=== PATIENT | male | born 1990 | race Caucasian/White ===

== ENCOUNTER 2017-02-28 19:14 | Inpatient (IN) | payer SELFPAY ==
[~2017-02-28] VITALS: Ht 188 cm; Wt 65.1 kg
[2017-02-28 19:20] VITALS: BP 142/92; PULSE 132; RESP 18; TEMP 97.8; O2SAT 98
[2017-02-28] MEDS ORDERED: SODIUM CHLOR 0.9% 1000 ML INJ 1,000 ML IV ONE ×2 (19:30→21:15)
[2017-02-28] MEDS ORDERED: THIAMINE INJ 100 MG in SODIUM CHLORIDE 0.9% INJ 100 ML IV ONE (19:30)
--- NOTE | 2017-02-28 19:33 | PD ---
HPI Chief Complaint: Seizure Time Seen by Provider: 19:20 Travel History International Travel<30 days: No Contact w/Intl Traveler<30days: No Traveled to known affect area: No History of Present Illness HPI The patient is a 26 year old male who presents to the [facility] emergency department with a history of reportedly being found on the floor with a decreased level of consciousness by his roommates. According to ambulance services, the patient was in the kitchen and they heard a loud crash. When they went to check on him he was on the floor. He did not have any shaking or noted seizure activity, however according to ambulance services see does have a history of seizures in the past. The patient was confused with a decreased level of consciousness. The patient arrives tachycardic in the 120s with dilated pupils. The patient is looking around the room but not focusing on any particular person. The patient has difficulty speaking although he is able to answer yes or no to questions. He denies having any pain. According to ambulance services, there were multiple bottles of empty liquor throughout the house. Also, from reviewing the patient's electronic medical record the patient has a history of alcohol and drug overdose previously evaluated in the hospital. According to the record, this was an unintentional overdose. The patient's history is limited related to his current condition, his history is obtained through reviewing the electronic medical record. PFSH Past Medical History Narrative Medical The patient's past medical history is significant for alcohol abuse, polysubstance abuse, history of anxiety disorder and panic attacks, history of seizures. Hx Anticoagulant Therapy: No Blood Disorders: No Anxiety: Yes Cancer: No Cardiovascular Problems: Yes (Tachy) Chemotherapy: No Cerebrovascular Accident: No Diabetes: No Diminished Hearing: No Endocrine: No Immune Disorder: No Implanted Vascular Access Dvce: No Musculoskeletal: Yes (BROKEN JAW) Psychiatric: Yes (PANIC ATTACKS) Immunizations Current: Yes Seizures: Yes (APPROX 5 TIMES IN 2009. ) Past Surgical History Narrative Surgical The patient's past surgical history is significant for ORIF of the jaw. Hysterectomy: No Other Surgery: Yes (broken jaw) Social History Alcohol Use: Yes ((4) 16 OZ BEERS DAILY/ 750 ML VODKA DLY) Tobacco Use: Yes (E-CIG) Substance Use: Yes (MARIJUANA; HEROIN, XANAX) Allergies-Medications (Allergen,Severity, Reaction): Coded Allergies: Sulfa (Verified Allergy, Unknown, TOLD CHILD, 10/16/16) Reported Meds & Prescriptions Reported Meds & Active Scripts Active No Active Prescriptions or Reported Medications Review of Systems ROS Limitations: Clinical Condition, Poor Historian Except as stated in HPI: all other systems reviewed are Neg Musculoskeletal: No: Pain Neurologic: Positive: Change in Mentation Psychiatric: Positive: Substance Abuse Physical Exam Narrative General: The patient is a well-developed well-nourished male in no acute distress. Head and Neck exam: Head is normocephalic atraumatic. Eyes: Extra the motion testing is unable to be accomplished in this patient who is unable to follow commands at this time, pupils are equal round and reactive to light, dilated to 6 mm bilaterally. Nose: Midline septum with pink mucous membranes Mouth: Dentition unremarkable. Tacky mucus membranes. Posterior oropharynx is not erythematous. No tonsillar hypertrophy. Uvula midline. Airway patent. Neck: No palpable lymphadenopathy. No nuchal rigidity. No thyromegaly. The patient was placed in a cervical collar. The patient has altered mentation, therefore his neck examination was limited by this. There is no step-off or crepitus noted. Cardiovascular: Sinus tachycardia with a rate in the 120s without murmurs, gallops, or rubs. No pulse deficit to the extremities and simultaneous auscultation and palpation of his radial artery. Lungs: Clear to auscultation bilaterally. No wheezes, rhonchi, or rales. Abdomen: Soft, without tenderness to palpation in all 4 quadrants of the abdomen. No guarding, rebound, or rigidity. Normal bowel sounds are audible. Extremities: No clubbing, cyanosis, or edema. 2+ pulses in all 4 extremities. No calf tenderness on palpation. No extremity deformity or tenderness on palpation. Back: No spinous process tenderness to palpation. No costovertebral angle tenderness to palpation. The patient is noted to have an area of ecchymosis Neurologic Exam: The patient has not following commands although he is moving all extremities equally. He has no evidence of facial asymmetry. He has 5 over 5 strength in all extremities. He has intact sensation over all dermatomes. The patient is tremulous on examination. Data Data Last Documented VS Vital Signs Date Time Temp Pulse Resp B/P Pulse Ox O2 Delivery O2 Flow Rate FiO2 02/28/17 19:47 18 98 02/28/17 19:23 130 02/28/17 19:20 97.8 142/92 Orders Complete Blood Count With Diff (02/28/17 19:26) Comprehensive Metabolic Panel (02/28/17 19:26) Creatine Kinase (Cpk) (02/28/17 19:26) Ckmb (Isoenzyme) Profile (02/28/17 19:26) Prothrombin Time / Inr (Pt) (02/28/17 19:) Act Partial Throm Time (Ptt) (02/28/17 19:) Urinalysis - C+S If Indicated (02/28/17 19:26) Magnesium (Mg) (02/28/17 19:) Ammonia (02/28/17:) Chest, Single Ap (02/28/17 19:26) Ct Brain W/O Iv Contrast(Rout) (02/28/17 19:26) Iv Access Insert/Monitor (02/28/17 19:26) Ecg Monitoring (02/28/17:) Oximetry (02/28/17:) Apply Cervical Collar (02/28/17 19:) Drug Screen, Random Urine (02/28/17 19:26) Alcohol (Ethanol) (02/28/17 19:26) Salicylates (Aspirin) (02/28/17 19:26) Tylenol (Acetaminophen) (02/28/17 19:26) Sodium Chlor 0.9% 1000 Ml Inj (Ns 1000 M (02/28/17 19:30) Thiamine Inj (Thiamine Inj) (02/28/17 19:30) Ct Cerv Spine W/O Contrast (02/28/17 ) Lorazepam Inj (Ativan Inj) (02/28/17 20:15) Restraints Non-Violent PHONG.Q3H (02/28/17 20:10) Electrocardiogram (02/28/17 19:22) Sodium Chlor 0.9% 1000 Ml Inj (Ns 1000 M (02/28/17 21:15) Alcohol Withdrawal Asmt-Ciwa Q4HX18 (02/28/17 22:07) Flumazenil Inj (Romazicon Inj) (02/28/17 22:15) Lorazepam (Ativan) (02/28/17 22:15) Lorazepam Inj (Ativan Inj) (02/28/17 22:15) Lorazepam (Ativan) (02/28/17 22:15) Lorazepam Inj (Ativan Inj) (02/28/17 22:15) Lorazepam Inj (Ativan Inj) (02/28/17 22:15) Lorazepam Inj (Ativan Inj) (02/28/17 22:15) CKMB (02/28/17 19:40) CKMB% (02/28/17 19:40) Admit Order (Ed Use Only) (02/28/17 22:40) Labs Laboratory Tests Test 02/28/17 02/28/17 19:40 21:00 White Blood Count 3.6 TH/MM3 Red Blood Count 4.97 MIL/MM3 Hemoglobin 15.8 GM/DL Hematocrit 46.4 % Mean Corpuscular Volume 93.5 FL Mean Corpuscular Hemoglobin 31.9 PG Mean Corpuscular Hemoglobin 34.1 % Concent Red Cell Distribution Width 12.9 % Platelet Count 64 TH/MM3 Mean Platelet Volume 8.0 FL Neutrophils (%) (Auto) 55.5 % Lymphocytes (%) (Auto) 35.0 % Monocytes (%) (Auto) 6.5 % Eosinophils (%) (Auto) 1.1 % Basophils (%) (Auto) 1.9 % Neutrophils # (Auto) 2.0 TH/MM3 Lymphocytes # (Auto) 1.3 TH/MM3 Monocytes # (Auto) 0.2 TH/MM3 Eosinophils # (Auto) 0.0 TH/MM3 Basophils # (Auto) 0.1 TH/MM3 CBC Comment AUTO DIFF Differential Comment AUTO DIFF CONFIRMED Platelet Estimate LOW Platelet Morphology Comment NORMAL Red Cell Morphology Comment NORMAL Prothrombin Time 10.2 SEC Prothromb Time International 0.9 RATIO Ratio Activated Partial 25.8 SEC Thromboplast Time Sodium Level 142 MEQ/L Potassium Level 4.1 MEQ/L Chloride Level 102 MEQ/L Carbon Dioxide Level 23.8 MEQ/L Anion Gap 16 MEQ/L Blood Urea Nitrogen 11 MG/DL Creatinine 0.95 MG/DL Estimat Glomerular Filtration 95 ML/MIN Rate Random Glucose 116 MG/DL Calcium Level 8.2 MG/DL Magnesium Level 2.4 MG/DL Total Bilirubin 0.6 MG/DL Aspartate Amino Transf 206 U/L (AST/SGOT) Alanine Aminotransferase 66 U/L (ALT/SGPT) Alkaline Phosphatase 97 U/L Ammonia 44 MCMOL/L Total Creatine Kinase 330 U/L Creatine Kinase MB 1.1 NG/ML Creatine Kinase MB % 0.3 % Total Protein 8.0 GM/DL Albumin 4.6 GM/DL Salicylates Level LESS THAN 1.7 MG/DL Acetaminophen Level LESS THAN 2.0 MCG/ML Ethyl Alcohol Level 524 MG/DL Urine Opiates Screen NEG Urine Barbiturates Screen NEG Urine Amphetamines Screen NEG Urine Benzodiazepines Screen NEG Urine Cocaine Screen NEG Urine Cannabinoids Screen NEG MDM Medical Decision Making Medical Screen Exam Complete: Yes Emergency Medical Condition: Yes Medical Record Reviewed: Yes Interpretation(s) Last Impressions Head CT 02/28/171925 Signed Impressions: Service Date/Time: Tuesday, February 28, 2017 20:48 - CONCLUSION: Normal examination. José Veloz MD Chest X-Ray 02/28/171925 Signed Impressions: Service Date/Time: Tuesday, February 28, 2017 19:45 - CONCLUSION: No acute disease. José Veloz MD Cervical Spine CT 02/28/17 0000 Signed Impressions: Service Date/Time: Tuesday, February 28, 2017 20:48 - CONCLUSION: No fracture/subluxation. José Veloz MD Differential Diagnosis Alcohol intoxication, versus other substance intoxication, versus withdrawal syndrome with seizure, versus postictal state, versus intracranial abnormality, versus metabolic encephalopathy Narrative Course During the course of the patients emergency department visit, the patients history, examination, and differential diagnosis were reviewed with the patient. The patient had IV access obtained and blood work sent for analysis. The patient was placed on a road consultant with oximetry and blood pressure monitoring. A cervical collar was placed on the patient. A condom catheter was placed on the patient to obtain a urine sample. A chest x-ray, CT scan of the brain was ordered, CT scan of the C-spine was ordered. The patient's blood sugar prior to arrival was reportedly normal according to ambulance services. An EKG was done on arrival. The patient's EKG shows a sinus tachycardia rate of 123, marked right axis deviation, incomplete right bundle branch block, QRS duration 90 ms, QTC [address] segment elevation. The patient was initially provided normal saline 1 L IV fluid bolus, thiamine 100 mg IV. The patient became agitated and was having difficulty staying still in bed. The patient was given Ativan 2 mg IV 1. As the patient became more awake and alert, the patient reports that he was attempting to stop drinking alcohol. He reports that he has had seizures in the past when he has stopped drinking. He reports that over the last 24 hours she's been tremulous. He reports that he was previously drinking 8-16 ounce beers daily. He reports that he last went through a detox program 2 weeks ago. The patient's symptoms are suspected to be related to alcohol withdrawal syndrome and delirium tremens. The patient was given additional Ativan for treatment as he continues to be agitated and tremulous. Interestingly the patient's alcohol level finally was resulted at 524. The patient has a history of Xanax abuse in the past, I suspect that the patient's withdrawal syndrome is related to benzodiazepine withdrawal. The patients laboratory studies were reviewed and remarkable for white count is 3.6, hemoglobin 15.8, platelets 64 with a normal differential, CMP is remarkable for an anion gap of 16, glucose 116, calcium 8.2, AST 206, CPK 3:30, normal MB percent, ammonia level XLIV, PT PTT within normal limits, urine drug screen is negative, salicylate less than 1.7, acetaminophen less than 2.0, alcohol level DXXIV. Radiology studies were reviewed and remarkable for a chest x-ray, CT scan of the brain, CT scan of the C-spine showed no acute abnormality. The patient will be admitted to the hospital for seizure activity and what appears to be benzodiazepine withdrawal syndrome, self medicated with alcohol. The patients results were discussed with the patient, including the plan of care. I explained that further testing and/ or monitoring is indicated based on the patients history, examination, and/ or laboratory findings. Therefore, I recommended admission for additional evaluation. The patient expressed understanding and was agreeable with this plan. The patient was admitted to the hospital in guarded condition and [facility] Physician Communication Physician Communication The patient's case was discussed with Dr. Wang who did agree to admit the patient for further evaluation and treatment at this time. Diagnosis Primary Impression: Withdrawal syndrome Qualified Code: F13.239 - Withdrawal from sedative, hypnotic, or anxiolytic drug Additional Impression: Seizure Admitting Information Admitting Physician Requests: Admit Scripts No Active Prescriptions or Reported Meds Carito Zhang MD Feb 28, 2017 19:33
[2017-02-28 19:47] VITALS: RESP 18; O2SAT 98
--- NOTE | 2017-02-28 19:57 | RADRPT ---
EXAM DATE/TIME: 02/28/2017 19:45 [facility] COMPARISON: CHEST SINGLE AP, October 16, 2016, 17:22. INDICATIONS : Syncopal episode. MEDICAL HISTORY : Seizures. SURGICAL HISTORY : None. ENCOUNTER: Initial ACUITY: 1 day PAIN SCORE: Non-responsive. LOCATION: Bilateral chest FINDINGS: A single view of the chest demonstrates the lungs to be symmetrically aerated without evidence of mas s, infiltrate or effusion. The cardiomediastinal contours are unremarkable. Osseous structures are intact. CONCLUSION: No acute disease. José Veloz MD on February 28, 2017 at 19:54 Board Certified Radiologist. This report was verified electronically.
[2017-02-28 20:11] LABS: BASOPHIL # 0.1 TH/MM3 (0-0.2); BASOPHIL % 1.9 % (0.0-2.0); EOSINOPHIL % 1.1 % (0.0-4.0); HEMATOCRIT 46.4 % (39.0-51.0); LYMPHOCYTE # 1.3 TH/MM3 (1.0-4.8); MEAN CELL VOLUME 93.5 FL (80.0-100.0); MEAN CORPUSCULAR HEMOGLOBIN 31.9 PG (27.0-34.0); MEAN CORPUSCULAR HGB CONC 34.1 % (32.0-36.0); MONO % 6.5 % (0.0-8.0); NEUT % 55.5 % (16.0-70.0); PLATELET COUNT 64 TH/MM3 (150-450); RED BLOOD COUNT 4.97 MIL/MM3 (4.50-5.90); RED CELL DISTRIBUTION WIDTH 12.9 % (11.6-17.2); WHITE BLOOD COUNT 3.6 TH/MM3 (4.0-11.0)
[2017-02-28] MEDS ORDERED: LORazepam 2 MG/ML VIAL IV PUSH ONE (20:15)
[2017-02-28 20:16] LABS: APTT (PATIENT) 25.8 SEC (24.3-30.1); INTERNATIONAL NORMALIZED RATIO 0.9 RATIO; PROTHROMBIN TIME - PATIENT 10.2 SEC (9.8-11.6)
[2017-02-28 20:39] LABS: HEMO FLAGS AUTO DIFF
[2017-02-28 20:55] LABS: PLATELET ESTIMATE SMEAR LOW (NORMAL); PLATELET MORPHOLOGY NORMAL (NORMAL); SCAN/DIFF AUTO DIFF CONFIRMED
--- NOTE | 2017-02-28 21:05 | RADRPT ---
EXAM DATE/TIME: 02/28/2017 20:48 [facility] COMPARISON: CT BRAIN W/O CONTRAST, October 16, 2016, 17:30. INDICATIONS : Seizures. RADIATION DOSE: 40.38 CTDIvol (mGy) MEDICAL HISTORY : Cardiovascular disease. Seizures. SURGICAL HISTORY : None. ENCOUNTER: Initial ACUITY: 1 day PAIN SCALE: 0/10 LOCATION: cranial TECHNIQUE: Multiple contiguous axial images were obtained of the head. Using automated exposure control and adj ustment of the mA and/or kV according to patient size, radiation dose was kept as low as reasonably a chievable to obtain optimal diagnostic quality images. FINDINGS: CEREBRUM: The ventricles are normal for age. No evidence of midline shift, mass lesion, hemorrhage or acute in farction. No extra-axial fluid collections are seen. POSTERIOR FOSSA: The cerebellum and brainstem are intact. The 4th ventricle is midline. The cerebellopontine angle i s unremarkable. EXTRACRANIAL: The visualized portion of the orbits is intact. SKULL: The calvaria is intact. No evidence of skull fracture. CONCLUSION: Normal examination. José Veloz MD on February 28, 2017 at 21:00 Board Certified Radiologist. This report was verified electronically.
--- NOTE | 2017-02-28 21:07 | RADRPT ---
EXAM DATE/TIME: 02/28/2017 20:48 [facility] COMPARISON: No previous studies available for comparison. INDICATIONS : Seizures. RADIATION DOSE: 20.67 CTDIvol (mGy) MEDICAL HISTORY : Cardiovascular disease. Seizures. SURGICAL HISTORY : None. ENCOUNTER: Initial ACUITY: 1 day PAIN SCALE: 0/10 LOCATION: neck TECHNIQUE: Volumetric scanning of the cervical spine was performed. Multiplanar reconstructions in the sagittal, coronal and oblique axial planes were performed. Using automated exposure control and adjustment o f the mA and/or kV according to patient size, radiation dose was kept as low as reasonably achievable to obtain optimal diagnostic quality images. FINDINGS: VERTEBRAE: Normal vertebral body height. ALIGNMENT: No evidence of subluxation. C2-C3: The bony spinal canal is normal in size. No evidence of disc bulge or herniation. The neural forami na are bilaterally patent. C3-C4: The bony spinal canal is normal in size. No evidence of disc bulge or herniation. The neural forami na are bilaterally patent. C4-C5: The bony spinal canal is normal in size. No evidence of disc bulge or herniation. The neural forami na are bilaterally patent. C5-C6: The bony spinal canal is normal in size. No evidence of disc bulge or herniation. The neural forami na are bilaterally patent. C6-C7: The bony spinal canal is normal in size. No evidence of disc bulge or herniation. The neural forami na are bilaterally patent. C7-T1: The bony spinal canal is normal in size. No evidence of disc bulge or herniation. The neural forami na are bilaterally patent. CONCLUSION: No fracture/subluxation. José Veloz MD on February 28, 2017 at 21:04 Board Certified Radiologist. This report was verified electronically.
[2017-02-28 21:24] LABS: AMPHETAMINE, URINE NEG (NEG); BARBITURATES, URINE NEG (NEG); COCAINE, URINE NEG (NEG)
[2017-02-28 22:06] LABS: ANION GAP 16 MEQ/L (5-15)
[2017-02-28 22:12] LABS: ACETAMINOPHEN LESS THAN 2.0 MCG/ML (10.0-30.0); ALKALINE PHOSPHATASE 97 U/L (45-117); ALT (GPT) 66 U/L (12-78); AST (GOT) 206 U/L (15-37); BICARBONATE 23.8 MEQ/L (21.0-32.0); BLOOD UREA NITROGEN 11 MG/DL (7-18); CHLORIDE 102 MEQ/L (98-107); CREATINE KINASE 330 U/L (39-308); GLOMERULAR FILTRATION RATE 95 ML/MIN (>89); MAGNESIUM 2.4 MG/DL (1.5-2.5); POTASSIUM 4.1 MEQ/L (3.5-5.1); SODIUM (NA) 142 MEQ/L (136-145); TOTAL BILIRUBIN ADULT 0.6 MG/DL (0.2-1.0)
[2017-02-28] MEDS ORDERED: LORazepam 2 MG/ML VIAL IV PUSH PRN ×4 (22:15)
[2017-02-28] MEDS ORDERED: LORazepam 2 MG TAB PO PRN (22:15)
[2017-02-28] MEDS ORDERED: LORazepam 1 MG TAB PO PRN (22:15)
[2017-02-28] MEDS ORDERED: FLUMAZENIL 0.5 MG/5 ML VIAL IV PUSH PRN (22:15)
[2017-02-28 22:31] LABS: CKMB 1.1 NG/ML (0.5-3.6)
[2017-02-28 23:00] VITALS: BP 133/86; PULSE 111; RESP 18; O2SAT 99
[2017-02-28] MEDS ORDERED: SODIUM CHLORIDE 0.9% FLUSH 10 ML FLUSH IV FLUSH PRN (23:15)
[2017-02-28] MEDS ORDERED: NALOXONE HCL 0.4 MG/ML AMP IV PRN (23:15)
[2017-03-01] VITALS (10 sets, daily range): BP systolic 122–153; BP diastolic 76–94; PULSE 81–112; RESP 16–26; TEMP 97.8–98.4; O2SAT 95–100
--- NOTE | 2017-03-01 02:59 | HHI.HP ---
HPI Service [facility] Primary Care Physician No Primary Care Physician Admission Diagnosis Withdrawal syndrome, Etoh intoxication, AMS Diagnoses: Travel History International Travel<30 Days: No Contact w/Intl Traveler <30 Da: No Traveled to Known Affected Are: No History of Present Illness History from patient, ER physician communication, and review of medical records. Patient reports that he came to the hospital because he had a seizure. He reports his roommates where around. However he does not remember any of the events. He reports he just woke up at the ambulance. As per ER communication, patient was with his roommates and they heard a loud bump and one they want to check, they found him on the floor. Patient was quite confused and belligerent upon his initial arrival from triage all the way through the echo part. He required restraints. Patient reports of prior history of seizures. He states however that he is not on any medications for it. It usually happens when he is withdrawing from alcohol or benzos. He admits to using benzodiazepines on the streets. However he hasn't used it for about 2 days. He also admits to drinking alcohol. His alcohol level was greater than 500. Patient reports of some nausea and vomiting as well. However denies any blood. Later on, he requested his primary care to come and see him here. Again he is advised that his PCP does not come to the hospital had seizure remember waking up afternoon nap no diarrhea next line Patient reports that he has been cutting down on Xanax. He states he is instead using alcohol quite heavily and his last drink was today. Review of Systems Except as stated in HPI: all other systems reviewed are Neg Past Family Social History Past Medical History seizures - years ago Past Surgical History none Reported Medications None apart from Xanax on the streets Allergies: Coded Allergies: Sulfa (Verified Allergy, Unknown, TOLD CHILD, 10/16/16) Family History dad- had massive mi at 50s aunt- cancer Social History half a pack a day 8 beers a day sometimes shots benzos no iv drugs Physical Exam Vital Signs Vital Signs Date Time Temp Pulse Resp B/P Pulse Ox O2 Delivery O2 Flow Rate FiO2 03/01/17 01:00 109 18 126/79 99 02/28/17 23:00 111 18 133/86 99 02/28/17 19:47 18 98 02/28/17 19:23 130 18 98 02/28/17 19:20 97.8 132 18 142/92 98 Physical Exam GENERAL: This is a thin young gentleman, quite tremulous, tachycardic around 110 , not in distress. SKIN: Poor personal hygiene. HEAD: Atraumatic. Normocephalic. No temporal or scalp tenderness. EYES: No scleral icterus. No injection or drainage. ENT: Nose without bleeding, purulent drainage or septal hematoma. Airway patent. NECK: Trachea midline. No JVD CARDIOVASCULAR: Tachycardic, regular rhythm without murmurs, gallops, or rubs. RESPIRATORY: Clear to auscultation. Breath sounds equal bilaterally. No wheezes , rales, or rhonchi. GASTROINTESTINAL: Abdomen soft, non-tender, nondistended. No guarding. MUSCULOSKELETAL: Extremities without clubbing, cyanosis, or edema. No calf tenderness. NEUROLOGICAL: Awake and alert. Normal speech. Laboratory Laboratory Tests Test 02/28/17 02/28/17 19:40 21:00 White Blood Count 3.6 Red Blood Count 4.97 Hemoglobin 15.8 Hematocrit 46.4 Mean Corpuscular Volume 93.5 Mean Corpuscular Hemoglobin 31.9 Mean Corpuscular Hemoglobin 34.1 Concent Red Cell Distribution Width 12.9 Platelet Count 64 Mean Platelet Volume 8.0 Neutrophils (%) (Auto) 55.5 Lymphocytes (%) (Auto) 35.0 Monocytes (%) (Auto) 6.5 Eosinophils (%) (Auto) 1.1 Basophils (%) (Auto) 1.9 Neutrophils # (Auto) 2.0 Lymphocytes # (Auto) 1.3 Monocytes # (Auto) 0.2 Eosinophils # (Auto) 0.0 Basophils # (Auto) 0.1 CBC Comment AUTO DIFF Differential Comment AUTO DIFF CONFIRMED Platelet Estimate LOW Platelet Morphology Comment NORMAL Red Cell Morphology Comment NORMAL Prothrombin Time 10.2 Prothromb Time International 0.9 Ratio Activated Partial 25.8 Thromboplast Time Sodium Level 142 Potassium Level 4.1 Chloride Level 102 Carbon Dioxide Level 23.8 Anion Gap 16 Blood Urea Nitrogen 11 Creatinine 0.95 Estimat Glomerular Filtration 95 Rate Random Glucose 116 Calcium Level 8.2 Magnesium Level 2.4 Total Bilirubin 0.6 Aspartate Amino Transf 206 (AST/SGOT) Alanine Aminotransferase 66 (ALT/SGPT) Alkaline Phosphatase 97 Ammonia 44 Total Creatine Kinase 330 Creatine Kinase MB 1.1 Creatine Kinase MB % 0.3 Total Protein 8.0 Albumin 4.6 Salicylates Level LESS THAN 1.7 Acetaminophen Level LESS THAN 2.0 Ethyl Alcohol Level 524 Urine Opiates Screen NEG Urine Barbiturates Screen NEG Urine Amphetamines Screen NEG Urine Benzodiazepines Screen NEG Urine Cocaine Screen NEG Urine Cannabinoids Screen NEG Result Diagram: 02/28/17193902/28/171939 Imaging Last [address] 02/28/171925 Signed Impressions: Service Date/Time: Tuesday, February 28, 2017 20:48 - CONCLUSION: Normal examination. José Veloz MD Chest X-Ray 02/28/171925 Signed Impressions: Service Date/Time: Tuesday, February 28, 2017 19:45 - CONCLUSION: No acute disease. José Veloz MD Cervical Spine CT 02/28/17 0000 Signed Impressions: Service Date/Time: Tuesday, February 28, 2017 20:48 - CONCLUSION: No fracture/subluxation. José Veloz MD Assessment and Plan Problem List: (1) Seizure ICD Code: R56.9 Status: Acute (2) Withdrawal syndrome ICD Code: F19.939 Status: Acute Assessment and Plan Impression: Benzo withdrawal Alcohol intoxication Tachycardia RBBBchronic. Previous EKGs from 2009 reviewed. Seizuresecondary to withdrawal Plan: Ativan 1 mg IV every 2 hours when necessary for withdrawal symptoms. Seizure precautions. Thiamine 100 mg by mouth daily. IV hydration. Admit patient to ICU for close monitoring. Discussed Condition With Patient, ER physician, patient's nurse Physician Certification 2 Midnight Certification Type: Admission for Inpatient Services Order for Inpatient Services The services are ordered in accordance with Medicare regulations or non- Medicare payer requirements, as applicable. In the case of services not specified as inpatient-only, they are appropriately provided as inpatient services in accordance with the 2-midnight benchmark. Estimated LOS (days): 2 days is the estimated time the patient will need to remain in the hospital, assuming treatment plan goals are met and no additional complications. Post-Hospital Plan: Home Problem Qualifiers (1) Withdrawal syndrome: Qualified Code: F13.239 - Withdrawal from sedative, hypnotic, or anxiolytic drug Todd Wang MD Mar 01, 2017 02:59
[2017-03-01] MEDS ORDERED: THIAMINE INJ 100 MG in SODIUM CHLORIDE 0.9% INJ 100 ML IV ONE (03:15)
[2017-03-01] MEDS ORDERED: LORazepam 2 MG/ML VIAL IV PUSH PRN (03:45)
[2017-03-01] MEDS: SODIUM CHLOR 0.9% 1000 ML INJ 1,000 ML IV SCH ×3 (03:48→20:07)
[2017-03-01] MEDS: THIAMINE HCL 100 MG TAB PO SCH (07:16)
[2017-03-01] MEDS: SODIUM CHLORIDE 0.9% FLUSH 10 ML FLUSH IV FLUSH SCH ×2 (07:17→20:06)
[2017-03-01] MEDS: NICOTINE 14 MG/24 HR PATCH T-DERMAL SCH ×2 (07:17→07:20)
[2017-03-01] MEDS: MULTIVITAMINS/MINERALS THERAPEUTIC TAB PO SCH (09:00)
[2017-03-01] MEDS: LORazepam 2 MG/ML VIAL IV PUSH PRN ×9 (09:21→23:30)
[2017-03-01] MEDS ORDERED: CHLORHEXIDINE GLUCONATE 2 % 1 PACK (2 CLOTHS)(extra cloths) TOPICAL PRN (10:30)
--- NOTE | 2017-03-01 11:06 | EKG ---
Date Performed: 02/28/2017 Time Performed: 19:22:20 PTAGE: 26 years EKG: SINUS TACHYCARDIA MARKED RIGHT AXIS DEVIATION INCOMPLETE RIGHT BUNDLE BRANCH BLOCK ABNORMAL ECG PREVIOUS TRACING : 10/16/2016 17.40 Compared to prior tracing no significant change DOCTOR: Anne Gill Interpretating Date/Time 03/01/2017 11:05:00
[2017-03-01 12:11] LABS: AUTOMATED NEUTROPHIL # 2.9 TH/MM3 (1.8-7.7); BASOPHIL % 1.1 % (0.0-2.0); HEMATOCRIT 36.4 % (39.0-51.0); LYMPH % 21.3 % (9.0-44.0); LYMPHOCYTE # 0.9 TH/MM3 (1.0-4.8); MEAN CELL VOLUME 92.4 FL (80.0-100.0); MEAN CORPUSCULAR HEMOGLOBIN 32.6 PG (27.0-34.0); MEAN CORPUSCULAR HGB CONC 35.3 % (32.0-36.0); MONO % 7.1 % (0.0-8.0); NEUT % 69.5 % (16.0-70.0); PLATELET COUNT 42 TH/MM3 (150-450); RED BLOOD COUNT 3.94 MIL/MM3 (4.50-5.90); RED CELL DISTRIBUTION WIDTH 12.7 % (11.6-17.2); WHITE BLOOD COUNT 4.1 TH/MM3 (4.0-11.0)
[2017-03-01 12:20] LABS: HEMO FLAGS AUTO DIFF
[2017-03-01 12:38] LABS: BICARBONATE 25.1 MEQ/L (21.0-32.0); POTASSIUM 3.6 MEQ/L (3.5-5.1)
[2017-03-01 13:04] LABS: PLATELET ESTIMATE SMEAR LOW (NORMAL); PLATELET MORPHOLOGY NORMAL (NORMAL); SCAN/DIFF AUTO DIFF CONFIRMED
--- NOTE | 2017-03-01 16:43 | HHI.PR ---
Subjective Remarks Follow-up alcohol abuse. Positive tremors denies hallucinations. Discussed with RN Objective Vitals Vital Signs Date Time Temp Pulse Resp B/P Pulse Ox O2 Delivery O2 Flow Rate FiO2 03/01/17 16:00 98.2 81 16 144/82 98 03/01/17 12:00 97.8 92 16 134/91 95 03/01/17 08:00 98.3 112 16 136/94 100 03/01/17 05:40 98 03/01/17 04:59 98.0 104 16 127/76 100 03/01/17 04:30 90 18 122/83 98 03/01/17 03:38 98 18 127/82 99 03/01/17 01:00 109 18 126/79 99 02/28/17 23:00 111 18 133/86 99 02/28/17 19:47 18 98 02/28/17 19:23 130 18 98 02/28/17 19:20 97.8 132 18 142/92 98 I/O 02/28/17 02/28/17 02/28/17 03/01/17 03/01/17 03/01/17 07:00 15:00 23:00 07:00 15:00 23:00 Intake Total 639 ml 1938 ml Output Total 500 ml 950 ml Balance 139 ml 988 ml Intake Oral 960 ml IV Total 639 ml 978 ml Output Urine Total 350 ml 950 ml Emesis 150 ml # Voids 1 # Bowel Movements 1 3 Result Diagram: 03/01/17 1155 03/01/17 1155 Imaging Last Impressions Head CT 02/28/171925 Signed Impressions: Service Date/Time: Tuesday, February 28, 2017 20:48 - CONCLUSION: Normal examination. José Veloz MD Chest X-Ray 02/28/171925 Signed Impressions: Service Date/Time: Tuesday, February 28, 2017 19:45 - CONCLUSION: No acute disease. José Veloz MD Cervical Spine CT 02/28/17 0000 Signed Impressions: Service Date/Time: Tuesday, February 28, 2017 20:48 - CONCLUSION: No fracture/subluxation. José Veloz MD Objective Remarks GENERAL: This is a thin young gentleman, quite tremulous, tachycardic around 110 , not in distress. SKIN: Poor personal hygiene. HEAD: Atraumatic. Normocephalic. No temporal or scalp tenderness. EYES: No scleral icterus. No injection or drainage. ENT: Nose without bleeding, purulent drainage or septal hematoma. Airway patent. NECK: Trachea midline. No JVD CARDIOVASCULAR: Tachycardic, regular rhythm without murmurs, gallops, or rubs. RESPIRATORY: Clear to auscultation. Breath sounds equal bilaterally. No wheezes , rales, or rhonchi. GASTROINTESTINAL: Abdomen soft, non-tender, nondistended. No guarding. MUSCULOSKELETAL: Extremities without clubbing, cyanosis, or edema. No calf tenderness. NEUROLOGICAL: Awake and alert. Normal speech. Tremors noted A/P Problem List: (1) Seizure ICD Code: R56.9 Status: Acute (2) Withdrawal syndrome ICD Code: F19.939 Status: Acute Assessment and Plan Alcohol and Benzo withdrawal . Keep in ICU monitor for DTs. [facility] protocol Alcohol intoxication. Counselled. Banana bag Tachycardia 2/2 above RBBBchronic. Previous EKGs from 2010 reviewed. Seizuresecondary to withdrawal. Seizure precautions Leukocytosis likely reactive Thrombocytopenia likely from alcohol. We'll monitor Discharge Planning Not ready for discharge Problem Qualifiers (1) Withdrawal syndrome: Qualified Code: F13.239 - Withdrawal from sedative, hypnotic, or anxiolytic drug Bobby Su MD Mar 01, 2017 16:43
--- NOTE | 2017-03-01 21:42 | MG ---
cc: ENID DAVIS M.D. Lab No: Date: 03/01/2017 Age: Sex: M Race: TEST NUMBER [id number] TECHNIQUE 17 channel EEG. DESCRIPTION The background rhythm reveals mild slowing in the theta range. There is superimposed beta activity as well at about 15 Hz. Prominent eye movement artifact is identified as well as muscle artifact. There are no lateralizing features. There are no epileptiform features present. INTERPRETATION Abnormal study basis on the basis of generalized slowing consistent with an encephalopathic process. MD MELANIE Hunter/KK /6:47 PM /9:38 PM
[2017-03-02] VITALS (12 sets, daily range): BP systolic 133–142; BP diastolic 87–98; PULSE 68–88; RESP 17–23; TEMP 98–98.6; O2SAT 93–99
[2017-03-02] MEDS: LORazepam 2 MG/ML VIAL IV PUSH PRN ×6 (01:07→18:25)
[2017-03-02] MEDS: CHLORHEXIDINE GLUCONATE 2 % 1 PACK (2 CLOTHS)(taper/protocol) TOPICAL SCH (02:37)
[2017-03-02] MEDS: SODIUM CHLOR 0.9% 1000 ML INJ 1,000 ML IV SCH (02:37)
[2017-03-02] MEDS: SODIUM CHLORIDE 0.9% FLUSH 10 ML FLUSH IV FLUSH SCH ×2 (09:00→21:00)
[2017-03-02] MEDS: NICOTINE 14 MG/24 HR PATCH T-DERMAL SCH (09:04)
[2017-03-02] MEDS: MULTIVITAMINS/MINERALS THERAPEUTIC TAB PO SCH (09:05)
[2017-03-02] MEDS: THIAMINE HCL 100 MG TAB PO SCH (09:05)
--- NOTE | 2017-03-02 15:58 | HHI.PR ---
Subjective Remarks Follow-up alcohol withdrawal. States he is okay discussed with RN Objective Vitals Vital Signs Date Time Temp Pulse Resp B/P Pulse Ox O2 Delivery O2 Flow Rate FiO2 03/02/17 14:00 71 03/02/17 12:00 79 03/02/17 10:00 74 03/02/17 08:00 70 03/02/17 06:00 70 03/02/17 04:00 98.5 79 18 135/87 99 03/02/17 04:00 79 03/02/17 02:00 78 03/02/17 00:00 98.6 83 23 135/88 93 03/02/17 00:00 83 03/01/17 22:00 91 03/01/17 20:00 98.4 94 26 153/90 96 03/01/17 20:00 94 03/01/17 16:00 98.2 81 16 144/82 98 I/O 03/01/17 03/01/17 03/01/17 03/02/17 03/02/17 03/02/17 07:00 15:00 23:00 07:00 15:00 23:00 Intake Total 639 ml 1938 ml 1447 ml 1030 ml 1214 ml Output Total 500 ml 950 ml 700 ml 1400 ml 960 ml Balance 139 ml 988 ml 747 ml -370 ml 254 ml Intake Oral 960 ml 480 ml 240 ml IV Total 639 ml 978 ml 967 ml 790 ml 1214 ml Output Urine Total 350 ml 950 ml 700 ml 1400 ml 960 ml Emesis 150 ml # Voids 1 # Bowel Movements 1 3 Result Diagram: 03/01/17 1155 03/01/17 1155 Imaging Last Impressions Head CT 02/28/171925 Signed Impressions: Service Date/Time: Tuesday, February 28, 2017 20:48 - CONCLUSION: Normal examination. José Veloz MD Chest X-Ray 02/28/171925 Signed Impressions: Service Date/Time: Tuesday, February 28, 2017 19:45 - CONCLUSION: No acute disease. José Veloz MD Cervical Spine CT 02/28/17 0000 Signed Impressions: Service Date/Time: Tuesday, February 28, 2017 20:48 - CONCLUSION: No fracture/subluxation. José Veloz MD Objective Remarks GENERAL: This is a thin young gentleman, quite tremulous, tachycardic around 110 , not in distress. SKIN: Poor personal hygiene. HEAD: Atraumatic. Normocephalic. No temporal or scalp tenderness. EYES: No scleral icterus. No injection or drainage. ENT: Nose without bleeding, purulent drainage or septal hematoma. Airway patent. NECK: Trachea midline. No JVD CARDIOVASCULAR: Tachycardic, regular rhythm without murmurs, gallops, or rubs. RESPIRATORY: Clear to auscultation. Breath sounds equal bilaterally. No wheezes , rales, or rhonchi. GASTROINTESTINAL: Abdomen soft, non-tender, nondistended. No guarding. MUSCULOSKELETAL: Extremities without clubbing, cyanosis, or edema. No calf tenderness. NEUROLOGICAL: Awake and alert. Normal speech. Improving Tremors Procedures None A/P Problem List: (1) Seizure ICD Code: R56.9 Status: Acute (2) Withdrawal syndrome ICD Code: F19.939 Status: Acute Assessment and Plan Alcohol and Benzo withdrawal . Less tremors today. Keep in ICU monitor for DTs. [facility] protocol Alcohol intoxication. Counselled. Banana bag Tachycardia 2/2 above. Continue telemetry RBBBchronic. Previous EKGs from 2010 reviewed. Seizuresecondary to withdrawal. EEG without seizure. Seizure precautions Leukocytosis likely reactive Thrombocytopenia likely from alcohol. We'll monitor DVT prophylaxis with SCD and early ambulation. No pharmacological prophylaxis secondary to thrombocytopenia Discharge Planning If he continues to improve transfer to floor tomorrow Problem Qualifiers (1) Withdrawal syndrome: Qualified Code: F13.239 - Withdrawal from sedative, hypnotic, or anxiolytic drug Bobby Su MD Mar 02, 2017 15:58
[2017-03-02] MEDS: HALOPERIDOL LACTATE 5 MG/ML AMP IM PRN (19:24)
[2017-03-03] VITALS (12 sets, daily range): BP systolic 126–144; BP diastolic 76–95; PULSE 59–112; RESP 17–59; TEMP 97.9–99.6; O2SAT 97–99
[2017-03-03] MEDS: LORazepam 2 MG/ML VIAL IV PUSH PRN ×7 (00:51→23:37)
[2017-03-03] MEDS: CHLORHEXIDINE GLUCONATE 2 % 1 PACK (2 CLOTHS)(taper/protocol) TOPICAL SCH ×2 (04:00→20:19)
[2017-03-03] MEDS: SODIUM CHLORIDE 0.9% FLUSH 10 ML FLUSH IV FLUSH SCH ×2 (09:00→20:19)
[2017-03-03] MEDS: NICOTINE 14 MG/24 HR PATCH T-DERMAL SCH (09:00)
[2017-03-03] MEDS: HALOPERIDOL LACTATE 5 MG/ML AMP IM PRN ×2 (09:10→17:55)
[2017-03-03] MEDS: THIAMINE HCL 100 MG TAB PO SCH (09:11)
[2017-03-03] MEDS: MULTIVITAMINS/MINERALS THERAPEUTIC TAB PO SCH (09:11)
--- NOTE | 2017-03-03 13:23 | HHI.PR ---
Subjective Remarks Follow-up alcohol withdrawal. Improving tremors participated with physical therapy. Discussed with RN, patient will be downgraded to telemetry Objective Vitals Vital Signs Date Time Temp Pulse Resp B/P Pulse Ox O2 Delivery O2 Flow Rate FiO2 03/03/17 12:00 69 03/03/17 10:00 74 03/03/17 08:00 69 03/03/17 06:12 69 03/03/17 04:00 98.1 59 59 144/95 98 03/03/17 04:00 59 03/03/17 02:00 68 03/03/17 00:00 77 03/03/17 00:00 97.9 77 19 143/84 97 03/02/17 22:00 84 03/02/17 20:00 98.3 79 18 142/98 96 03/02/17 20:00 75 03/02/17 18:00 74 03/02/17 16:00 78 03/02/17 16:00 98.5 88 17 133/90 97 03/02/17 14:00 71 I/O 03/02/17 03/02/17 03/02/17 03/03/17 03/03/17 03/03/17 07:00 15:00 23:00 07:00 15:00 23:00 Intake Total 1030 ml 1214 ml 1400 ml 800 ml Output Total 1400 ml 960 ml 1000 ml 750 ml Balance -370 ml 254 ml 400 ml 50 ml Intake Oral 240 ml 500 ml IV Total 790 ml 1214 ml 900 ml 800 ml Output Urine Total 1400 ml 960 ml 1000 ml 750 ml Result Diagram: 03/01/17 1155 03/01/17 1155 Imaging Last Impressions Head CT 02/28/171925 Signed Impressions: Service Date/Time: Tuesday, February 28, 2017 20:48 - CONCLUSION: Normal examination. José Veloz MD Chest X-Ray 02/28/171925 Signed Impressions: Service Date/Time: Tuesday, February 28, 2017 19:45 - CONCLUSION: No acute disease. José Veloz MD Cervical Spine CT 02/28/17 0000 Signed Impressions: Service Date/Time: Tuesday, February 28, 2017 20:48 - CONCLUSION: No fracture/subluxation. José Veloz MD Objective Remarks GENERAL: This is a thin young gentleman, quite tremulous, tachycardic around 110 , not in distress. SKIN: Poor personal hygiene. HEAD: Atraumatic. Normocephalic. No temporal or scalp tenderness. EYES: No scleral icterus. No injection or drainage. ENT: Nose without bleeding, purulent drainage or septal hematoma. Airway patent. NECK: Trachea midline. No JVD CARDIOVASCULAR: Tachycardic, regular rhythm without murmurs, gallops, or rubs. RESPIRATORY: Clear to auscultation. Breath sounds equal bilaterally. No wheezes , rales, or rhonchi. GASTROINTESTINAL: Abdomen soft, non-tender, nondistended. No guarding. MUSCULOSKELETAL: Extremities without clubbing, cyanosis, or edema. No calf tenderness. NEUROLOGICAL: Awake and alert. Normal speech. Improving Tremors otherwise nonfocal Procedures None A/P Problem List: (1) Seizure ICD Code: R56.9 Status: Acute (2) Withdrawal syndrome ICD Code: F19.939 Status: Acute Assessment and Plan Alcohol and Benzo withdrawal . Improving tremors. [facility] protocol Alcohol intoxication. Counselled. Banana bag Tachycardia 2/2 above. Continue telemetry RBBBchronic. Previous EKGs from 2010 reviewed. Seizuresecondary to withdrawal. EEG without seizure. Seizure precautions Leukocytosis likely reactive Thrombocytopenia likely from alcohol. We'll monitor DVT prophylaxis with SCD and early ambulation. No pharmacological prophylaxis secondary to thrombocytopenia Stable for transfer to telemetry Discharge Planning If he continues to improve possible discharge in 1-2 days Problem Qualifiers (1) Withdrawal syndrome: Qualified Code: F13.239 - Withdrawal from sedative, hypnotic, or anxiolytic drug Bobby Su MD Mar 03, 2017 13:23
[2017-03-03] MEDS ORDERED: VITA100T2 PO (14:55)
--- NOTE | 2017-03-03 14:55 | HHI.DCPOC ---
Discharge Care Plan Diagnosis: (1) Withdrawal syndrome (2) Seizure Your Health Problems Are: Difficulty with ADL Exercise Tolerance Goals to Promote Your Health * To prevent worsening of your condition and complications * To maintain your health at the optimal level Directions to Meet Your Goals Take your medications as prescribed Follow your dietary instruction Follow activity as directed Keep your appointments as scheduled Take your immunizations and boosters as scheduled If your symptoms worsen call your PCP, if no PCP go to Urgent Care Center or Emergency Room Smoking is Dangerous to Your Health. Avoid second hand smoke Call the 24-hour hour crisis hotline for domestic abuse at Bobby Su MD Mar 03, 2017 14:55
[2017-03-03] MEDS ORDERED: DILTIAZEM 125 MG/NS 100 ML IV SCH ×2 (18:45)
[2017-03-03 19:19] LABS: AUTOMATED NEUTROPHIL # 3.1 TH/MM3 (1.8-7.7); BASOPHIL % 0.8 % (0.0-2.0); EOSINOPHIL # 0.2 TH/MM3 (0-0.4); EOSINOPHIL % 4.4 % (0.0-4.0); HEMATOCRIT 40.3 % (39.0-51.0); LYMPH % 13.6 % (9.0-44.0); LYMPHOCYTE # 0.6 TH/MM3 (1.0-4.8); MEAN CELL VOLUME 94.5 FL (80.0-100.0); MEAN CORPUSCULAR HEMOGLOBIN 31.3 PG (27.0-34.0); MEAN CORPUSCULAR HGB CONC 33.2 % (32.0-36.0); MONO % 8.4 % (0.0-8.0); NEUT % 72.8 % (16.0-70.0); PLATELET COUNT 42 TH/MM3 (150-450); RED BLOOD COUNT 4.27 MIL/MM3 (4.50-5.90); RED CELL DISTRIBUTION WIDTH 13.1 % (11.6-17.2); WHITE BLOOD COUNT 4.3 TH/MM3 (4.0-11.0)
[2017-03-03 19:22] LABS: HEMO FLAGS AUTO DIFF
[2017-03-03 19:42] LABS: BICARBONATE 29.5 MEQ/L (21.0-32.0); MAGNESIUM 2.3 MG/DL (1.5-2.5); POTASSIUM 3.5 MEQ/L (3.5-5.1)
[2017-03-03 19:53] LABS: PLATELET ESTIMATE SMEAR LOW (NORMAL); PLATELET MORPHOLOGY NORMAL (NORMAL); SCAN/DIFF AUTO DIFF CONFIRMED
[2017-03-03] MEDS: cloNIDine HCL 0.1 MG TAB PO SCH (20:17)
[2017-03-03] MEDS: chlordiazePOXIDE 25 MG CAP PO SCH (20:17)
[2017-03-04] VITALS (12 sets, daily range): BP systolic 112–128; BP diastolic 70–84; PULSE 67–109; RESP 14–20; TEMP 98–98.8; O2SAT 95–100
[2017-03-04] MEDS: HALOPERIDOL LACTATE 5 MG/ML AMP IM PRN (01:36)
[2017-03-04] MEDS: LORazepam 2 MG/ML VIAL IV PUSH PRN ×2 (01:37→05:06)
[2017-03-04] MEDS: THIAMINE HCL 100 MG TAB PO SCH (08:12)
[2017-03-04] MEDS: cloNIDine HCL 0.1 MG TAB PO SCH ×2 (08:12→19:56)
[2017-03-04] MEDS: NICOTINE 14 MG/24 HR PATCH T-DERMAL SCH (08:12)
[2017-03-04] MEDS: MULTIVITAMINS/MINERALS THERAPEUTIC TAB PO SCH (08:12)
[2017-03-04] MEDS: chlordiazePOXIDE 25 MG CAP PO SCH ×3 (08:12→17:54)
--- NOTE | 2017-03-04 08:40 | HHI.FPPN ---
Subjective Remarks No acute events overnight. Vital signs have remained stable. CIWA protocol. Patient denies any AH/VH. He states the agitation and shakiness is improving. Patient was just noted by nursing staff to be experiencing tachycardia, EKG was performed and confirmed sinus rhythm. Current HR ~90. He is eating breakfast. Objective Vitals Vital Signs Date Time Temp Pulse Resp B/P Pulse Ox O2 Delivery O2 Flow Rate FiO2 03/04/17 06:00 67 03/04/17 04:00 98.0 81 16 127/84 99 03/04/17 04:00 81 03/04/17 02:00 83 03/04/17 00:00 75 03/04/17 00:00 98.8 75 17 120/75 97 03/03/17 22:00 82 03/03/17 20:00 99.6 101 18 137/88 99 03/03/17 20:00 101 03/03/17 18:00 112 03/03/17 16:00 98.3 77 18 140/76 98 03/03/17 16:00 70 03/03/17 14:00 71 03/03/17 12:00 98.2 82 17 126/87 97 03/03/17 12:00 69 03/03/17 10:00 74 I/O 03/03/17 03/03/17 03/03/17 03/04/17 03/04/17 03/04/17 07:00 15:00 23:00 07:00 15:00 23:00 Intake Total 800 ml 1352 ml 500 ml 240 ml Output Total 750 ml 1200 ml 2015 ml 250 ml Balance 50 ml 152 ml -1515 ml -10 ml Intake Oral 500 ml 500 ml 240 ml IV Total 800 ml 852 ml Output Urine Total 750 ml 1200 ml 2015 ml 250 ml # Bowel Movements 0 0 Result Diagram: 03/03/17191103/03/171911 Objective Remarks GENERAL: Thin gentleman, mildly tremulous, tachycardic to around 90-100, no distress. SKIN: Poor personal hygiene. HEAD: Atraumatic. Normocephalic. No temporal or scalp tenderness. EYES: No scleral icterus. No injection or drainage. ENT: Nose without bleeding, purulent drainage or septal hematoma. Airway patent. NECK: Trachea midline. CARDIOVASCULAR: Tachycardic, regular rhythm without murmurs, gallops, or rubs. RESPIRATORY: Clear to auscultation. Breath sounds equal bilaterally. No wheezes , rales, or rhonchi. GASTROINTESTINAL: Abdomen soft, non-tender, nondistended. No guarding. MUSCULOSKELETAL: Extremities without clubbing, cyanosis, or edema. No calf tenderness. NEUROLOGICAL: Awake and alert. Normal speech. Improving tremors otherwise nonfocal A/P Assessment and Plan 26-year-old male who presented with acute alcohol and benzodiazepine withdrawal #) Alcohol and Benzo withdrawal: - Improving tremors. - Continue CIWA protocol - Banana bag #) Sinue tachycardia, otherwise asymptomatic. Likely due to above - Continue telemetry - RBBBchronic, previous EKGs from 2009 reviewed. #) Seizuresecondary to withdrawal. No recurrence. - EEG without seizure. - Seizure precautions #) Leukocytosis likely reactive, - continue to monitor #) Thrombocytopenia likely from alcohol. - We'll monitor DVT prophylaxis with SCD and early ambulation. No pharmacological prophylaxis secondary to thrombocytopenia Stable for transfer to telemetry Discharge Planning Pending continued clinical improvement, anticipate discharge in 1-2 days Problem List: (1) Alcohol intoxication Status: Acute (2) Substance abuse Status: Acute (3) Seizure Status: Acute (4) Withdrawal syndrome Status: Acute Problem Qualifiers (1) Alcohol intoxication: Qualified Code: F10.129 - Alcohol intoxication, with unspecified complication (2) Withdrawal syndrome: Qualified Code: F13.239 - Withdrawal from sedative, hypnotic, or anxiolytic drug Kenyon Gillis MD R3 Mar 04, 2017 08:40
[2017-03-04] MEDS: SODIUM CHLORIDE 0.9% FLUSH 10 ML FLUSH IV FLUSH SCH ×2 (09:00→19:56)
[2017-03-04] MEDS: LORazepam 1 MG TAB PO PRN ×2 (09:15→15:23)
--- NOTE | 2017-03-04 18:56 | EKG ---
Date Performed: 03/04/2017 Time Performed: 09:34:35 PTAGE: 26 years EKG: Sinus rhythm POSSIBLE LEFT ATRIAL ENLARGEMENT INCOMPLETE RIGHT BUNDLE BRANCH BLOCK NONSPECIFIC T-WAVE ABNORMALITY BORDERLINE ECG PREVIOUS TRACING : 03/03/2017 19.00 Compared to prior tracing no significant change DOCTOR: Brooke Hassan Interpretating Date/Time 03/04/2017 18:54:42
--- NOTE | 2017-03-04 19:19 | EKG ---
Date Performed: 03/03/2017 Time Performed: 19:00:51 PTAGE: 26 years EKG: SINUS TACHYCARDIA POSSIBLE LEFT ATRIAL ENLARGEMENT INCOMPLETE RIGHT BUNDLE BRANCH BLOCK ABN ORMAL RHYTHM ECG PREVIOUS TRACING : 02/28/2017 19.22 Compared to prior tracing no significant change DOCTOR: Brooke Hassan Interpretating Date/Time 03/04/2017 19:17:18
[2017-03-04] MEDS: LORazepam 2 MG TAB PO PRN ×2 (19:56→23:44)
[2017-03-05] VITALS (7 sets, daily range): BP systolic 128–137; BP diastolic 74–95; PULSE 62–88; RESP 16–20; TEMP 98–98.6; O2SAT 95–98
[2017-03-05] MEDS: LORazepam 1 MG TAB PO PRN ×3 (01:59→08:38)
[2017-03-05] MEDS: CHLORHEXIDINE GLUCONATE 2 % 1 PACK (2 CLOTHS)(taper/protocol) TOPICAL SCH (01:59)
[2017-03-05] MEDS: LORazepam 2 MG TAB PO PRN (03:37)
[2017-03-05] MEDS: MULTIVITAMINS/MINERALS THERAPEUTIC TAB PO SCH (07:45)
[2017-03-05] MEDS: THIAMINE HCL 100 MG TAB PO SCH (07:45)
[2017-03-05] MEDS: chlordiazePOXIDE 25 MG CAP PO SCH ×2 (07:45→12:53)
[2017-03-05] MEDS: cloNIDine HCL 0.1 MG TAB PO SCH (07:45)
[2017-03-05] MEDS: NICOTINE 14 MG/24 HR PATCH T-DERMAL SCH (07:46)
[2017-03-05 08:13] LABS: AUTOMATED NEUTROPHIL # 4.2 TH/MM3 (1.8-7.7); BASOPHIL # 0.1 TH/MM3 (0-0.2); BASOPHIL % 1.1 % (0.0-2.0); EOSINOPHIL # 0.3 TH/MM3 (0-0.4); HEMATOCRIT 40.7 % (39.0-51.0); LYMPH % 23.3 % (9.0-44.0); LYMPHOCYTE # 1.6 TH/MM3 (1.0-4.8); MEAN CELL VOLUME 92.5 FL (80.0-100.0); MEAN CORPUSCULAR HEMOGLOBIN 31.5 PG (27.0-34.0); MONO % 11.3 % (0.0-8.0); NEUT % 60.3 % (16.0-70.0); PLATELET COUNT 93 TH/MM3 (150-450)
[2017-03-05 08:40] LABS: BICARBONATE 27.8 MEQ/L (21.0-32.0); POTASSIUM 3.4 MEQ/L (3.5-5.1)
[2017-03-05 08:41] LABS: HEMO FLAGS AUTO DIFF
[2017-03-05] MEDS: SODIUM CHLORIDE 0.9% FLUSH 10 ML FLUSH IV FLUSH SCH (09:00)
[2017-03-05] MEDS ORDERED: CHLO25CA2 PO (11:47)
[2017-03-05 16:32] LABS: PLATELET ESTIMATE SMEAR LOW (NORMAL); PLATELET MORPHOLOGY NORMAL (NORMAL); SCAN/DIFF AUTO DIFF CONFIRMED
--- NOTE | 2017-03-08 08:46 | HHI.DS ---
Discharge Summary Admission Date Feb 28, 2017 at 22:42 Discharge Date: Mar 05, 2017 Admitting Diagnosis Withdrawal syndrome, Etoh intoxication, AMS (1) Seizure ICD Code: R56.9 (2) Withdrawal syndrome ICD Code: F19.939 Procedures None Brief History - From Admission History from patient, ER physician communication, and review of medical records. Patient reports that he came to the hospital because he had a seizure. He reports his roommates where around. However he does not remember any of the events. He reports he just woke up at the ambulance. As per ER communication, patient was with his roommates and they heard a loud bump and one they want to check, they found him on the floor. Patient was quite confused and belligerent upon his initial arrival from triage all the way through the echo part. He required restraints. Patient reports of prior history of seizures. He states however that he is not on any medications for it. It usually happens when he is withdrawing from alcohol or benzos. He admits to using benzodiazepines on the streets. However he hasn't used it for about 2 days. He also admits to drinking alcohol. His alcohol level was greater than 500. Patient reports of some nausea and vomiting as well. However denies any blood. Later on, he requested his primary care to come and see him here. Again he is advised that his PCP does not come to the hospital had seizure remember waking up afternoon nap no diarrhea next line Patient reports that he has been cutting down on Xanax. He states he is instead using alcohol quite heavily and his last drink was today. CBC/BMP: 03/05/17 0738 03/05/17 0738 Imaging Last Impressions Head CT 02/28/171925 Signed Impressions: Service Date/Time: Tuesday, February 28, 2017 20:48 - CONCLUSION: Normal examination. José Veloz MD Chest X-Ray 02/28/171925 Signed Impressions: Service Date/Time: Tuesday, February 28, 2017 19:45 - CONCLUSION: No acute disease. José Veloz MD Cervical Spine CT 02/28/17 0000 Signed Impressions: Service Date/Time: Tuesday, February 28, 2017 20:48 - CONCLUSION: No fracture/subluxation. José Veloz MD PE at Discharge GENERAL: thin 26-year-old male. Alert and oriented 3.appears comfortable. Heart rate in the 70s while lying down. Goes up to 110 while standing.no tremor. SKIN: Warm and dry. HEAD: Normocephalic. EYES: No scleral icterus. No injection or drainage. NECK: Supple, trachea midline. No JVD. CARDIOVASCULAR: Regular rate and rhythm without murmurs, gallops, or rubs. RESPIRATORY: Breath sounds equal bilaterally. No accessory muscle use. GASTROINTESTINAL: Abdomen soft, non-tender, nondistended. MUSCULOSKELETAL: No cyanosis, or edema. BACK: Nontender without obvious deformity. No CVA tenderness. Pt update on day of discharge pt feeling well. no cp or sob. feel like going home. says he will not drink etoh. cm contacted for etoh resources. Hospital Course 26-year-old male who presented with acute alcohol and benzodiazepine withdrawal . head seizure secondary to call withdrawal. Patient improved with benzodiazepines. He was sent home on Librium taper. He will [facility] up at [facility].patient agrees to stopping alcohol. #) Alcohol and Benzo withdrawal: - Improving tremors. - Continue CIWA protocol - Banana bag #) Sinue tachycardia, otherwise asymptomatic. Likely due to above - Continue telemetry - RBBBchronic, previous EKGs from 2009 reviewed. #) Seizuresecondary to withdrawal. No recurrence. - EEG without seizure. - Seizure precautions #) Leukocytosis likely reactive, - continue to monitor #) Thrombocytopenia likely from alcohol. - We'll monitor DVT prophylaxis with SCD and early ambulation. No pharmacological prophylaxis secondary to thrombocytopenia Pt Condition on Discharge: Good Discharge Disposition: Discharge Home Discharge Time: <= 30 minutes Discharge Instructions DIET: Follow Instructions for: As Tolerated, No Restrictions Activities you can perform: Regular-No Restrictions Activities to Avoid: Driving Other Activity Instructions: do not drink any alcohol. please go to [facility] Follow up Referrals: PCP Follow-up - 1 Week New Medications: Chlordiazepoxide (Chlordiazepoxide) 25 Mg Cap 25 MG PO TID Take THREE Times daily for 3 Days, then TWICE daily for 3 days, then ONCE a day for 3 Days. please followup with primary care for further tapering instructions Alcohol Detox #18 CAP Thiamine (Vitamin B-1) 100 Mg Tab 100 MG PO DAILY Alcohol Detox #30 TAB Driss Martinez MD March 08, 2017 08:46
== END 2017-03-05 13:55 | disposition home or self-care (01) | DRG 101 ==
LOC: NEPE 19:14 → NEDA 22:42 → HIMN 03-01 04:50
PROVIDERS: ADMIT Internal Medicine; ATTEND Internal Medicine
DX: R56.9 Unspecified convulsions (principal); D69.59 Other secondary thrombocytopenia; F10.239 Alcohol dependence with withdrawal, unspecified; F13.239 Sedative, hypnotic or anxiolytic dependence with withdrawal, unspecified; D72.829 Elevated white blood cell count, unspecified; H57.04 Mydriasis; I45.10 Unspecified right bundle-branch block; R00.0 Tachycardia, unspecified; F41.0 Panic disorder [episodic paroxysmal anxiety]; Z72.0 Tobacco use; Z78.1 Physical restraint status
CPT/HCPCS: 70450; 71010; 72125; 80048; 80053; 80307; 82140; 82550; 82552; 83735; 84100; 84443; 85025; 85610; 85730; 87641; 93005; 95819; 96361; 96365; 96375; J1630; J2060; J3411; J7030

== ENCOUNTER 2017-04-04 21:01 | Emergency (ER) | payer SELFPAY ==
[~2017-04-04] VITALS: Ht 188 cm; Wt 73.0 kg
[~2017-04-04 21:01] MED LIST: CHLO25CA2 PO; VITA100T2 PO
[2017-04-04 21:03] VITALS: BP 148/101; PULSE 146; RESP 20; TEMP 98.9; O2SAT 96
--- NOTE | 2017-04-04 21:36 | PD ---
Physical Exam Date Seen by Provider: April 04, 2017 Time Seen by Provider: 21:34 Narrative 26 yo male that presents to the ED for evaluation of detox. Per patient he is having alcohol withdrawal. Per patient he bruise his right knee. Unsure of how he did it. About a couple of hours. Drank beer a few hours ago. Chronic alcoholic. Has trouble ambulating but able to do so. Pain is 5/10. Vitals sign stable. Patient awaiting bed placement. Data Data Last Documented VS Vital Signs Date Time Temp Pulse Resp B/P Pulse Ox O2 Delivery O2 Flow Rate FiO2 04/04/17 21:03 98.9 146 20 148/101 96 Room Air [facility] Medical Record Reviewed: Yes Supervised Visit with FAUSTO: No Matthew Chavez April 04, 2017 21:36
--- NOTE | 2017-04-04 22:34 | PD ---
HPI Chief Complaint: Medical Clearance Time Seen by Provider: 22:28 Travel History International Travel<30 days: No Contact w/Intl Traveler<30days: No Traveled to known affect area: No History of Present Illness HPI 26-year-old white male presents to emergency department requesting off all detox. He states that he is cold Eddi Marchman and there is no beds available today. He has opted to come to the ER requesting detox. The patient states that he drinks typically 8-16 ounce 8 percent beers a day. He states that he is at approximately 5 today. He is concerned that he may go through withdrawal. He also notes that he had fallen earlier today onto his right knee he has some soreness. He denies any injury to his head, neck or back. No numbness, tingling or focal weakness. Patient denies depression. No suicidal homicidal ideation. PFSH Past Medical History Narrative Medical Mandible fracture, Anxiety, alcoholism Hx Anticoagulant Therapy: No Blood Disorders: No Anxiety: Yes Cancer: No Cardiovascular Problems: Yes (Tachy) Chemotherapy: No Cerebrovascular Accident: No Diabetes: No Diminished Hearing: No Endocrine: No Immune Disorder: No Implanted Vascular Access Dvce: No Musculoskeletal: Yes (BROKEN JAW) Psychiatric: Yes (PANIC ATTACKS) Immunizations Current: Yes Seizures: Yes (APPROX 5 TIMES IN 2009. ) Tetanus Vaccination: < 5 Years Influenza Vaccination: No Past Surgical History Hysterectomy: No Other Surgery: Yes (broken jaw) Social History Alcohol Use: Yes ((4) 16 OZ BEERS DAILY/ 750 ML VODKA DLY) Tobacco Use: Yes (E-CIG) Substance Use: Yes (MARIJUANA; HEROIN, XANAX) Allergies-Medications (Allergen,Severity, Reaction): Coded Allergies: Sulfa (Verified Allergy, Unknown, TOLD CHILD, 04/04/17) Reported Meds & Prescriptions Reported Meds & Active Scripts Active No Active Prescriptions or Reported Medications Review of Systems Except as stated in HPI: all other systems reviewed are Neg Physical Exam Narrative GENERAL: Well-nourished, well-developed patient. Patient is not tremulous. He ambulates with a normal gait. SKIN: Warm and dry. HEAD: Normocephalic and atraumatic. EYES: No scleral icterus. No injection or drainage. ENT: No nasal drainage noted. Mucous membranes pink. Airway patent. NECK: Supple, trachea midline. Moves head freely without obvious discomfort. CARDIOVASCULAR: Regular tachycardic rate and rhythm without murmurs, gallops, or rubs. RESPIRATORY: Breath sounds equal bilaterally. No accessory muscle use. GASTROINTESTINAL: Abdomen soft, non-tender, nondistended. EXTREMITIES: No cyanosis or edema. There is a soft tissue abrasion over the right patella. He moves his leg freely without discomfort. . BACK: Nontender without obvious deformity. No CVA tenderness. NEURO: Patient is alert and oriented. no sensorimotor deficits. Nonfocal. Normal speech. PSYCH: No delusions. No auditory or visual hallucinations. Data Data Last Documented VS Vital Signs Date Time Temp Pulse Resp B/P Pulse Ox O2 Delivery O2 Flow Rate FiO2 04/04/17 21:03 98.9 146 20 148/101 96 Room Air MDM Medical Decision Making Medical Screen Exam Complete: Yes Emergency Medical Condition: Yes Medical Record Reviewed: Yes Differential Diagnosis Differential diagnoses: Alcohol intoxication, substance abuse, electrolyte abnormality, malingering Narrative Course Unfortunately there are no beds at [facility] at this time. The patient is advised to maintain a low level of alcohol intake to circumvent going through withdrawal. He is to follow-up with Za[facility] Bearden first thing in the morning between 8 and 9 waiting for the first available bed. The patient is not a threat to himself or others. He does not appear to be in active withdrawal. The patient is medically stable and discharged. The patient has contacted his aunt who is agreed to come pick him up tonight. Diagnosis Primary Impression: Alcohol abuse Patient Instructions: General Instructions Additional Instructions: Rest. Increase fluids. Avoid excessive alcohol intake. Avoid illegal substances. Follow-up with [facility] Be[facility] for detox between the hours of a 8-9 AM. Do not operate a car or any heavy machinery under the influence of alcohol or drugs. Follow-up with a medical doctor this week. Return to the ER for emergencies Med/Other Pt SpecificInfo: No Meds Exist/No RX given Scripts No Active Prescriptions or Reported Meds Disposition: 01 DISCHARGE HOME Condition: Stable Jose Luis Cedeno April 04, 2017 22:34
== END 2017-04-04 22:53 | disposition home or self-care (01) ==
LOC: NEPK 21:01
DX: F10.20 Alcohol dependence, uncomplicated (principal)
CPT/HCPCS: 99282

== ENCOUNTER 2018-03-31 17:55 | Inpatient (IN) | payer SELFPAY ==
[~2018-03-31] VITALS: Ht 188 cm; Wt 67.9 kg
[~2018-03-31 17:55] MED LIST changes: -CHLO25CA2 PO; +GABA300C5 PO; +LEVE250 PO; +PROP10TA6 PO; +VIST25CA PO; -VITA100T2 PO
[2018-03-31 17:58] VITALS: BP 159/93; PULSE 142; RESP 16; TEMP 99.3; O2SAT 95
[2018-03-31 19:00] VITALS: RESP 20; O2SAT 97
[2018-03-31 19:33] VITALS: BP 133/85; PULSE 126; RESP 18; O2SAT 96
[2018-03-31] MEDS ORDERED: LORazepam 2 MG/ML VIAL IVS ONE (19:45)
[2018-03-31] MEDS ORDERED: SODIUM CHLOR 0.9% 1000 ML INJ 1,000 ML IV ONE (19:45)
[2018-03-31 19:56] LABS: AUTOMATED NEUTROPHIL # 2.8 TH/MM3 (1.8-7.7); BASOPHIL # 0.1 TH/MM3 (0-0.2); BASOPHIL % 1.4 % (0.0-2.0); EOSINOPHIL # 0.2 TH/MM3 (0-0.4); EOSINOPHIL % 3.2 % (0.0-4.0); HEMATOCRIT 43.6 % (39.0-51.0); HEMOGLOBIN 14.4 GM/DL (13.0-17.0); LYMPH % 32.7 % (9.0-44.0); LYMPHOCYTE # 1.7 TH/MM3 (1.0-4.8); MEAN CELL VOLUME 87.7 FL (80.0-100.0); MEAN CORPUSCULAR HEMOGLOBIN 29.1 PG (27.0-34.0); MEAN CORPUSCULAR HGB CONC 33.2 % (32.0-36.0); MEAN PLATELET VOLUME 8.3 FL (7.0-11.0); MONO % 7.5 % (0.0-8.0); MONOCYTE # 0.4 TH/MM3 (0-0.9); NEUT % 55.2 % (16.0-70.0); PLATELET COUNT 165 TH/MM3 (150-450); RED BLOOD COUNT 4.97 MIL/MM3 (4.50-5.90); RED CELL DISTRIBUTION WIDTH 12.9 % (11.6-17.2); WHITE BLOOD COUNT 5.2 TH/MM3 (4.0-11.0)
[2018-03-31 19:58] LABS: BILIRUBIN, URINE NEG (NEG); BLOOD, URINE NEG (NEG); GLUCOSE,URINE NEG (NEG); KETONE, URINE NEG (NEG); NITRITE,URINE NEG (NEG); PH, URINE 6.5 (5.0-8.5); URINE COLOR YELLOW (YELLW/STRAW); URINE LEUKOCYTE ESTERASE NEG (NEG)
[2018-03-31] MEDS: SODIUM CHLORIDE 0.9% FLUSH 10 ML FLUSH IVF PRN ×2 (20:03→20:56)
[2018-03-31 20:05] LABS: CHLORIDE 107 MEQ/L (98-107); SODIUM (NA) 142 MEQ/L (136-145)
[2018-03-31 20:06] LABS: RBC, URINE 0-2 /hpf (0-3); SQUAMOUS EPITHELIAL CELL URINE 0-5 /hpf (0-5); WBC, URINE 0-2 /hpf (0-5)
[2018-03-31 20:08] LABS: CALCIUM 8.2 MG/DL (8.5-10.1)
[2018-03-31 20:09] LABS: ALBUMIN 4.2 GM/DL (3.4-5.0); BICARBONATE 24.3 MEQ/L (21.0-32.0); BLOOD UREA NITROGEN 13 MG/DL (7-18); GLUCOSE,RANDOM 127 MG/DL (74-106); MAGNESIUM 2.2 MG/DL (1.5-2.5)
[2018-03-31 20:12] LABS: ALT (GPT) 31 U/L (12-78); AST (GOT) 37 U/L (15-37); CREATININE 0.88 MG/DL (0.60-1.30); GLOMERULAR FILTRATION RATE 103 ML/MIN (>89)
[2018-03-31 20:13] LABS: TOTAL BILIRUBIN ADULT 0.4 MG/DL (0.2-1.0); TOTAL PROTEIN 7.7 GM/DL (6.4-8.2)
[2018-03-31 20:15] LABS: ALKALINE PHOSPHATASE 91 U/L (45-117)
[2018-03-31] MEDS ORDERED: THIAMINE INJ 100 MG in SODIUM CHLORIDE 0.9% INJ 100 ML IV ONE (20:45)
--- NOTE | 2018-03-31 20:49 | PD ---
HPI Chief Complaint: Seizure Time Seen by Provider: 19:42 Travel History International Travel<30 days: No Contact w/Intl Traveler<30days: No Traveled to known affect area: No History of Present Illness HPI 27-year-old male presents to the emergency department for evaluation of alcohol withdrawal seizure. According to patient who is able to relay his history and friends are not available he was apparently with his friends this afternoon and had a witnessed generalized tonic-clonic seizure of approximately 3 minutes and approximate 30 minutes of postictal recovery. Patient states he does not know if he sustained any injury but does not complain of any head pain neck pain chest pain back pain abdominal pain or extremity injury. Patient did not bite his tongue and denies having any bladder or bowel incontinence. Patient states that after he recovered from his seizure he drank alcohol in order to prevent recurrent seizure. Patient states he drinks alcohol daily and 2 days ago decided to discontinue alcohol use on his own and has been tremulous and jittery. Patient states that he has been through detox programs in the past and only temporarily successful. Patient does not take any seizure medications. Patient denies any prescription medications at this time. Patient has been on prescription benzodiazepine in the past and has had suspected withdrawal from abrupt discontinuance of benzodiazepines in the past. Patient denies any benzodiazepine use at this time. Patient remains mildly tremulous. Patient is tearful. 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; tobacco use alcohol use substance use; nursing notes reviewed Hx Anticoagulant Therapy: No Blood Disorders: No Anxiety: Yes Cancer: No Cardiovascular Problems: Yes (Tachy) Chemotherapy: No Cerebrovascular Accident: No Diabetes: No Diminished Hearing: No Endocrine: No Hypertension: Yes Immune Disorder: No Implanted Vascular Access Dvce: No Musculoskeletal: Yes (BROKEN JAW) Psychiatric: Yes (PANIC ATTACKS) Immunizations Current: Yes Seizures: Yes (WITHDRAWEL SEIZURE) Influenza Vaccination: No ?: Not Past Surgical History Hysterectomy: No Other Surgery: Yes (broken jaw) Social History Alcohol Use: Yes (pt [id number] ml of vodka daily) Tobacco Use: Yes (E-CIG) Substance Use: Yes (MARIJUANA; HEROIN, XANAX none recently per pt) Allergies-Medications (Allergen,Severity, Reaction): Coded Allergies: Sulfa (Sulfonamide Antibiotics) (Unverified Allergy, Unknown, TOLD CHILD, 03/31/18) Reported Meds & Prescriptions Reported Meds & Active Scripts Active Review of Systems Except as stated in HPI: all other systems reviewed are Neg General / Constitutional: No: Fever, Chills Eyes: No: Visual changes HENT: No: Headaches, Neck Pain Cardiovascular: No: Chest Pain or Discomfort Respiratory: No: Shortness of Breath Gastrointestinal: No: Vomiting, Abdominal Pain Genitourinary: No: Flank Pain Musculoskeletal: No: Myalgias, Arthralgias Skin: No Rash Neurologic: Positive: Weakness, Syncope, Tremor, Seizures, No: Dizziness Psychiatric: Positive: Anxiety, No: Suicidal Ideations Hematologic/Lymphatic: No: Lymph Node Enlargement Physical Exam Narrative GENERAL: Well-developed well-nourished male mild tremulousness with sinus tachycardia by child monitor; GCS 15 SKIN: Warm and dry. HEAD: Atraumatic. Normocephalic. EYES: Pupils equal and round and reactive to light. No scleral icterus. No injection or drainage. ENT: No nasal bleeding or discharge. Mucous membranes pink and moist. NECK: Trachea midline. No JVD. No midline tenderness to direct palpation along the posterior cervical spine no bony step-off CARDIOVASCULAR: Increased regular rate and rhythm. RESPIRATORY: No accessory muscle use. Clear to auscultation. Breath sounds equal bilaterally. GASTROINTESTINAL: Abdomen soft, non-tender, nondistended. Hepatic and splenic margins not palpable. MUSCULOSKELETAL: Extremities without clubbing, cyanosis, or edema. No obvious deformities. NEUROLOGICAL: Awake and alert, GCS 15. No obvious cranial nerve deficits. Motor grossly within normal limits. Five out of 5 muscle strength in the arms and legs. Normal speech. PSYCHIATRIC: Appropriate mood and affect, occasionally tearful; insight and judgment normal. Data Data Last Documented VS Vital Signs Date Time Temp Pulse Resp B/P (MAP) Pulse Ox O2 Delivery O2 Flow Rate FiO2 03/31/18 19:33 126 18 133/85 (101) 96 Room Air 03/31/18 17:58 99.3 Orders Orders Complete Blood Count With Diff (03/31/18 19:42) Alcohol (Ethanol) (03/31/18 19:42) Drug Screen, Random Urine (03/31/18 19:42) Blood Glucose (03/31/18 19:42) Ecg Monitoring (03/31/18 19:42) Iv Access Insert/Monitor (03/31/18 19:42) Oximetry (03/31/18 19:42) Comprehensive Metabolic Panel (03/31/18 19:42) Sodium Chloride 0.9% Flush (Ns Flush) (03/31/18 19:45) Lorazepam Inj (Ativan Inj) (03/31/18 19:45) Ua Includes Microscopic (03/31/18 19:42) Sodium Chlor 0.9% 1000 Ml Inj (Ns 1000 M (03/31/18 19:45) Magnesium (Mg) (03/31/18 19:42) Thiamine Inj (Thiamine Inj) (03/31/18 20:45) Alcohol Withdrawal Asmt-Ciwa ONCE (03/31/18 20:49) Flumazenil Inj (Romazicon Inj) (03/31/18 21:00) Lorazepam (Ativan) (03/31/18 21:00) Lorazepam Inj (Ativan Inj) (03/31/18 21:00) Lorazepam (Ativan) (03/31/18 21:00) Lorazepam Inj (Ativan Inj) (03/31/18 21:00) Lorazepam Inj (Ativan Inj) (03/31/18 21:00) Lorazepam Inj (Ativan Inj) (03/31/18 21:00) Admit Order (Ed Use Only) (03/31/18 ) Health Care Facility Administrator / Telemetry PHONG.[id number] (03/31/18 21:01) Activity Oob With Assistance (03/31/18 21:01) Notify Dr: Other (03/31/18 21:01) Labs Laboratory Tests Test 03/31/18 19:00 White Blood Count 5.2 TH/MM3 Red Blood Count 4.97 MIL/MM3 Hemoglobin 14.4 GM/DL Hematocrit 43.6 % Mean Corpuscular Volume 87.7 FL Mean Corpuscular Hemoglobin 29.1 PG Mean Corpuscular Hemoglobin Concent 33.2 % Red Cell Distribution Width 12.9 % Platelet Count 165 TH/MM3 Mean Platelet Volume 8.3 FL Neutrophils (%) (Auto) 55.2 % Lymphocytes (%) (Auto) 32.7 % Monocytes (%) (Auto) 7.5 % Eosinophils (%) (Auto) 3.2 % Basophils (%) (Auto) 1.4 % Neutrophils # (Auto) 2.8 TH/MM3 Lymphocytes # (Auto) 1.7 TH/MM3 Monocytes # (Auto) 0.4 TH/MM3 Eosinophils # (Auto) 0.2 TH/MM3 Basophils # (Auto) 0.1 TH/MM3 CBC Comment DIFF FINAL Differential Comment Urine Color YELLOW Urine Turbidity CLEAR Urine pH 6.5 Urine Specific [place] 1.020 Urine Protein NEG mg/dL Urine Glucose (UA) NEG mg/dL Urine Ketones NEG mg/dL Urine Occult Blood NEG Urine Nitrite NEG Urine Bilirubin NEG Urine Urobilinogen 0.2 MG/DL Urine Leukocyte Esterase NEG Urine RBC 0-2 /hpf Urine WBC 0-2 /hpf Urine Squamous Epithelial Cells 0-5 /hpf Urine Bacteria NONE /hpf Blood Urea Nitrogen 13 MG/DL Creatinine 0.88 MG/DL Random Glucose 127 MG/DL Total Protein 7.7 GM/DL Albumin 4.2 GM/DL Calcium Level 8.2 MG/DL Magnesium Level 2.2 MG/DL Alkaline Phosphatase 91 U/L Aspartate Amino Transf (AST/SGOT) 37 U/L Alanine Aminotransferase (ALT/SGPT) 31 U/L Total Bilirubin 0.4 MG/DL Sodium Level 142 MEQ/L Potassium Level 3.6 MEQ/L Chloride Level 107 MEQ/L Carbon Dioxide Level 24.3 MEQ/L Anion Gap 11 MEQ/L Estimat Glomerular Filtration Rate 103 ML/MIN Urine Opiates Screen NEG Urine Barbiturates Screen NEG Urine Amphetamines Screen NEG Urine Benzodiazepines Screen NEG Urine Cocaine Screen NEG Urine Cannabinoids Screen NEG Ethyl Alcohol Level 294 MG/DL MDM Medical Decision Making Medical Screen Exam Complete: Yes Emergency Medical Condition: Yes Medical Record Reviewed: Yes Interpretation(s) CBC & BMP Diagram 03/31/18 19:00 Total Protein 7.7, Albumin 4.2, Calcium Level 8.2 L, Magnesium Level 2.2, Alkaline Phosphatase 91, Aspartate Amino Transf (AST/SGOT) 37, Alanine Aminotransferase (ALT/SGPT) 31, Total Bilirubin 0.4 Vital Signs Date Time Temp Pulse Resp B/P (MAP) Pulse Ox O2 Delivery O2 Flow Rate FiO2 03/31/18 19:33 126 18 133/85 (101) 96 Room Air 03/31/18 19:00 20 97 Room Air 03/31/18 18:37 Room Air 03/31/18 17:58 99.3 142 16 159/93 (115) 95 Serum alcohol 294, elevated; urine drug screen negative Differential Diagnosis Alcohol withdrawal seizures syncope arrhythmia electrolyte disturbance polysubstance ingestion depression Narrative Course Patient placed on child monitor IV access obtained continuous pulse oximetry seizure precautions in place patient administered 1 L normal saline 1 mg Ativan and and thiamine 100 mg Lab values resulted serum alcohol 294, elevated urine drug screen negative CBC metabolic panel values grossly normal range; urinalysis normal Plan will be to admit patient for alcohol withdrawal with seizure; patient at this time fairly comfortable receiving IV fluids thiamine Ativan 1 mg IV and patient self medicated with alcohol prior to arrival to the emergency department with alcohol level 294. Patient's case discussed with on-call medicine for admission will admit for alcohol withdrawal and alcohol withdrawal seizure. Physician Communication Physician Communication call placed to [facility] discussed with Dr Ortiz --admit to her service Diagnosis Primary Impression: Alcohol withdrawal seizure Qualified Codes: F10.230 - Alcohol dependence with withdrawal, uncomplicated Additional Impression: Alcohol intoxication Qualified Codes: F10.929 - Alcohol use, unspecified with intoxication, unspecified Admitting Information Admitting Physician Requests: Admit Yancy Sheehan MD March 31, 2018 20:49
[2018-03-31] MEDS ORDERED: LORazepam 1 MG TAB PO PRN (21:00)
[2018-03-31] MEDS ORDERED: LORazepam 2 MG/ML VIAL IV PUSH PRN ×4 (21:00)
[2018-03-31] MEDS ORDERED: FLUMAZENIL 0.5 MG/5 ML VIAL IV PUSH PRN (21:00)
[2018-03-31] MEDS ORDERED: LORazepam 2 MG TAB PO PRN (21:00)
[2018-03-31] MEDS ORDERED: MAGNESIUM HYDROXIDE SUSP 30 ML CUP PO PRN (21:15)
[2018-03-31] MEDS ORDERED: MORPHINE SULFATE 2 MG/ML SYRINGE IV PUSH PRN (21:15)
[2018-03-31] MEDS ORDERED: SODIUM CHLORIDE 0.9% FLUSH 10 ML FLUSH IV FLUSH PRN (21:15)
[2018-03-31] MEDS ORDERED: LACTULOSE SYRUP 20 GM/30 ML CUP PO PRN (21:15)
[2018-03-31] MEDS ORDERED: SENNOSIDES 8.6 MG TAB PO PRN (21:15)
[2018-03-31] MEDS ORDERED: ACETAMINOPHEN/HYDROcodone 325 MG/5 MG TAB PO PRN (21:15)
[2018-03-31] MEDS ORDERED: BISACODYL 10 MG SUPP RECTAL PRN (21:15)
[2018-03-31] MEDS ORDERED: ACETAMINOPHEN 325 MG TAB PO PRN (21:15)
[2018-03-31] MEDS: SODIUM CHLOR 0.9% 1000 ML INJ 1,000 ML IV SCH (22:38)
[2018-03-31] MEDS ORDERED: LORazepam 2 MG/ML VIAL IV PUSH ONE (22:45)
[2018-03-31 22:54] VITALS: BP 140/80
[2018-04-01] VITALS: BP 127/89; PULSE 100; RESP 20; TEMP 97.8; O2SAT 98
[2018-04-01 00:15] VITALS: PULSE 110
[2018-04-01 02:45] VITALS: BP 119/71; PULSE 118; RESP 18; TEMP 97.8; O2SAT 98
[2018-04-01 06:53] LABS: AUTOMATED NEUTROPHIL # 4.3 TH/MM3 (1.8-7.7); BASOPHIL # 0.1 TH/MM3 (0-0.2); EOSINOPHIL # 0.1 TH/MM3 (0-0.4); EOSINOPHIL % 2.4 % (0.0-4.0); HEMATOCRIT 38.5 % (39.0-51.0); HEMOGLOBIN 13.1 GM/DL (13.0-17.0); LYMPH % 22.8 % (9.0-44.0); LYMPHOCYTE # 1.4 TH/MM3 (1.0-4.8); MEAN CELL VOLUME 87.7 FL (80.0-100.0); MEAN CORPUSCULAR HEMOGLOBIN 29.9 PG (27.0-34.0); MEAN CORPUSCULAR HGB CONC 34.1 % (32.0-36.0); MEAN PLATELET VOLUME 8.8 FL (7.0-11.0); MONO % 5.6 % (0.0-8.0); MONOCYTE # 0.3 TH/MM3 (0-0.9); NEUT % 68.2 % (16.0-70.0); PLATELET COUNT 105 TH/MM3 (150-450); RED BLOOD COUNT 4.39 MIL/MM3 (4.50-5.90); RED CELL DISTRIBUTION WIDTH 12.8 % (11.6-17.2); WHITE BLOOD COUNT 6.2 TH/MM3 (4.0-11.0)
[2018-04-01 07:05] LABS: CHLORIDE 112 MEQ/L (98-107); SODIUM (NA) 145 MEQ/L (136-145)
[2018-04-01] MEDS: SODIUM CHLOR 0.9% 1000 ML INJ 1,000 ML IV SCH (07:07)
[2018-04-01 07:11] LABS: CALCIUM 7.5 MG/DL (8.5-10.1)
[2018-04-01 07:13] LABS: ALBUMIN 3.6 GM/DL (3.4-5.0); BICARBONATE 26.2 MEQ/L (21.0-32.0); BLOOD UREA NITROGEN 10 MG/DL (7-18)
[2018-04-01 07:15] LABS: ALT (GPT) 28 U/L (12-78); AST (GOT) 31 U/L (15-37); CREATININE 0.61 MG/DL (0.60-1.30); GLOMERULAR FILTRATION RATE 157 ML/MIN (>89); GLUCOSE,RANDOM 89 MG/DL (74-106)
[2018-04-01 07:25] LABS: ALKALINE PHOSPHATASE 74 U/L (45-117); TOTAL PROTEIN 6.6 GM/DL (6.4-8.2)
[2018-04-01 07:49] VITALS: BP 134/77; PULSE 102; RESP 20; TEMP 97.9; O2SAT 98
--- NOTE | 2018-04-01 08:27 | HHI.HP ---
[facility] No Primary Care Physician Admission Diagnosis alcohol w/d seizure; alcohol abuse Diagnoses: (1) Alcohol intoxication Diagnosis: Principal (2) Seizure Diagnosis: Principal Chief Complaint: Seizure Travel History International Travel<30 Days: No Contact w/Intl Traveler <30 Da: No Traveled to Known Affected Are: No History of Present Illness Written by Hossein Rosenthal, acting as scribe for Dr. Molina on 04/01/18 at 08: 26. 27-year-old male with known history of alcoholism who presented to the hospital because of seizure. Patient states that he has a long-standing history of alcoholism for approximately 10 years. He usually drinks vodka 750 mL's daily. He indicates that he was with friends yesterday and was noticed to have a seizure where he was having tonic-clonic movements for approximately 3 minutes. There was a postictal state where he cannot remember anything for approximately 30 minutes afterwards. Patient indicates that he does have history of alcohol related seizures. He states that he has been trying to wean himself off of alcohol in order to quit again. His blood alcohol level when he presented to the emergency department was 294. Because of the history of seizure is recommended by the emergency room physician that the patient be admitted for further evaluation and management. Patient states that he is doing much better this morning. Patient indicates that he will be quitting alcohol and he does have a sober house that he is going to once he leaves the hospital. Patient is requesting that he leaves the hospital today. Patient denies any recurrent seizures since being in the hospital. Denies any tremors. Mild abdominal discomfort but that is intermittent. Denies any nausea, vomiting, diarrhea, constipation. Denies any chest pain, shortness of breath, dyspnea. Review of Systems Neurologic: COMPLAINS OF: Seizures Except as stated in HPI: all other systems reviewed are Neg Past Family Social History Past Medical History Alcoholism Alcohol-related seizures Past Surgical History No previous surgery Reported Medications No outpatient medications Allergies: Coded Allergies: Sulfa (Sulfonamide Antibiotics) (Unverified Allergy, Unknown, TOLD CHILD, 03/31/18) Family History Family history is reviewed and unremarkable Social History Patient drinks 750 mL vodka daily since she was 14 years old, he does continue to smoke for the last 5 years, patient does have history of marijuana, heroin, benzodiazepine abuse, his toxicology screen was negative Physical Exam Vital Signs Vital Signs Date Time Temp Pulse Resp B/P (MAP) Pulse Ox O2 Delivery O2 Flow Rate FiO2 04/01/18 07:49 97.9 102 20 134/77 (96) 98 04/01/18 02:45 97.8 118 18 119/71 (87) 98 04/01/18 00:15 110 04/01/18 00:00 97.8 100 20 127/89 (102) 98 03/31/18 22:54 104 20 140/80 (100) 96 03/31/18 19:33 126 18 133/85 (101) 96 Room Air 03/31/18 19:00 20 97 Room Air 03/31/18 18:37 Room Air 03/31/18 17:58 99.3 142 16 159/93 (115) 95 Physical Exam GENERAL: Well-developed, well-nourished, in no acute distress. alert and orientated HEENT: Head is normocephalic without any lesions or masses noted. Facial features are symmetric. Eyes: Pupils equal round reactive to light. Extraocular muscles are intact. Conjunctivae were clear. Oropharyngeal: Pharynx without any erythema edema. Tongue is midline without deviation. Buccal mucosa is moist without any masses or lesions NECK: Supple without any masses. Trachea midline no deviation. No JVD, no bruits are appreciated CARDIAC: Regular rhythm, regular rate. S1/S2 are heard. No murmurs gallops or rubs. LUNGS: Clear to auscultation bilaterally. No wheeze, rhonchi or rales. No use of accessory muscles on inspiration or expiration. ABDOMEN: Soft, nontender. Nondistended. Bowel sounds heard in all 4 quadrants. No organomegaly or masses. Negative rebound, negative guarding EXTREMITIES: No edema, pulses are equal bilaterally. No cyanosis or clubbing. Patient does have obvious healing mccormick on his arms from where he works NEUROLOGY: Mood and affect appear appropriate. Cranial nerves II through XII grossly intact. Muscle strength 5/5 in upper and lower extremities bilaterally. Deep tendon reflexes are 2+ in upper and lower extremities bilaterally. Laboratory Laboratory Tests Test 03/31/18 19:00 04/01/18 06:32 White Blood Count 5.2 6.2 Red Blood Count 4.97 4.39 Hemoglobin 14.4 13.1 Hematocrit 43.6 38.5 Mean Corpuscular Volume 87.7 87.7 Mean Corpuscular Hemoglobin 29.1 29.9 Mean Corpuscular Hemoglobin Concent 33.2 34.1 Red Cell Distribution Width 12.9 12.8 Platelet Count 165 105 Mean Platelet Volume 8.3 8.8 Neutrophils (%) (Auto) 55.2 68.2 Lymphocytes (%) (Auto) 32.7 22.8 Monocytes (%) (Auto) 7.5 5.6 Eosinophils (%) (Auto) 3.2 2.4 Basophils (%) (Auto) 1.4 1.0 Neutrophils # (Auto) 2.8 4.3 Lymphocytes # (Auto) 1.7 1.4 Monocytes # (Auto) 0.4 0.3 Eosinophils # (Auto) 0.2 0.1 Basophils # (Auto) 0.1 0.1 CBC Comment DIFF FINAL DIFF FINAL Differential Comment Urine Color YELLOW Urine Turbidity CLEAR Urine pH 6.5 Urine Specific [place] 1.020 Urine Protein NEG Urine Glucose (UA) NEG Urine Ketones NEG Urine Occult Blood NEG Urine Nitrite NEG Urine Bilirubin NEG Urine Urobilinogen 0.2 Urine Leukocyte Esterase NEG Urine RBC 0-2 Urine WBC 0-2 Urine Squamous Epithelial Cells 0-5 Urine Bacteria NONE Blood Urea Nitrogen 13 10 Creatinine 0.88 0.61 Random Glucose 127 89 Total Protein 7.7 6.6 Albumin 4.2 3.6 Calcium Level 8.2 7.5 Magnesium Level 2.2 Alkaline Phosphatase 91 74 Aspartate Amino Transf (AST/SGOT) 37 31 Alanine Aminotransferase (ALT/SGPT) 31 28 Total Bilirubin 0.4 1.0 Sodium Level 142 145 Potassium Level 3.6 3.9 Chloride Level 107 112 Carbon Dioxide Level 24.3 26.2 Anion Gap 11 7 Estimat Glomerular Filtration Rate 103 157 Urine Opiates Screen NEG Urine Barbiturates Screen NEG Urine Amphetamines Screen NEG Urine Benzodiazepines Screen NEG Urine Cocaine Screen NEG Urine Cannabinoids Screen NEG Ethyl Alcohol Level 294 Result Diagram: 04/01/18 0632 04/01/18 0632 Caprini VTE Risk Assessment Caprini VTE Risk Assessment: No/Low Risk (score <= 1) Caprini Risk Assessment Model Point Value = 1 Point Value = 2 Point Value = 3 Point Value = 5 Age 41-60 Minor surgery BMI > 25 kg/m2 Swollen legs Varicose veins or History of unexplained or recurrent spontaneous Oral contraceptives or hormone replacement Sepsis (< 1 month) Serious lung disease, including pneumonia (< 1 month) Abnormal pulmonary function Acute myocardial infarction Congestive heart failure (< 1 month) History of inflammatory bowel disease Medical patient at bed rest Age 61-74 Arthroscopic surgery Major open surgery (> 45 min) Laparoscopic surgery (> 45 min) Malignancy Confined to bed (> 72 hours) Immobilizing plaster cast Central venous access Age >= 75 History of VTE Family history of VTE Factor V Leiden Prothrombin [id number] Lupus anticoagulant Anticardiolipin antibodies Elevated serum homocysteine Heparin-induced thrombocytopenia Other congenital or acquired thrombophilia Stroke (< 1 month) Elective arthroplasty Hip, pelvis, or leg fracture Acute spinal cord injury (< 1 month) Prophylaxis Regimen Total Risk Factor Score Risk Level Prophylaxis Regimen 0-1 Low Early ambulation 2 Moderate Order ONE of the following: *Sequential Compression Device (SCD) *Heparin 5000 units SQ BID 3-4 Higher Order ONE of the following medications: *Heparin 5000 units SQ TID *Enoxaparin/Lovenox 40 mg SQ daily (WT < 150 kg, CrCl > 30 mL/min) *Enoxaparin/Lovenox 30 mg SQ daily (WT < 150 kg, CrCl > 10-29 mL/min) *Enoxaparin/Lovenox 30 mg SQ BID (WT < 150 kg, CrCl > 30 mL/min) AND/OR *Sequential Compression Device (SCD) 5 or more Highest Order ONE of the following medications: *Heparin 5000 units SQ TID (Preferred with Epidurals) *Enoxaparin/Lovenox 40 mg SQ daily (WT < 150 kg, CrCl > 30 mL/min) *Enoxaparin/Lovenox 30 mg SQ daily (WT < 150 kg, CrCl > 10-29 mL/min) *Enoxaparin/Lovenox 30 mg SQ BID (WT < 150 kg, CrCl > 30 mL/min) AND *Sequential Compression Device (SCD) Assessment and Plan Problem List: (1) Alcohol withdrawal seizure ICD Code: F10.239 - Alcohol dependence with withdrawal, unspecified; R56.9 - Unspecified convulsions Status: Acute Assessment and Plan Alcohol abuse-related seizures -No recurrent seizures while in the hospital -CIWA protocol initiated -Start Librium 20 mg 3 times daily -Continue thiamine/folic acid -Counseled patient on cessation DVT prevention -Low risk, early ambulation Discharge disposition If the patient continues to improve without any further signs of alcohol withdrawal while on Librium, anticipate discharge to sober house today in stable condition Activity: Ad brina. Diet: Regular diet Medication per medication reconciliation Follow-up with primary medical doctor in 1 week This note was transcribed by fide Rosenthal. I, Dr. José Molina personally performed the history, physical exam, and medical decision making; and confirmed the accuracy of the information in the transcribed note. Authenticated by Dr. José Molina on 04/01/18 at 08:26. Code Status Full code Discussed Condition With Patient, nursing staff Physician Certification 2 Midnight Certification Type: Admission for Inpatient Services Order for Inpatient Services The services are ordered in accordance with Medicare regulations or non- Medicare payer requirements, as applicable. In the case of services not specified as inpatient-only, they are appropriately provided as inpatient services in accordance with the 2-midnight benchmark. Estimated LOS (days): 1 days is the estimated time the patient will need to remain in the hospital, assuming treatment plan goals are met and no additional complications. Post-Hospital Plan: Not yet determined Problem Qualifiers (1) Alcohol intoxication: Qualified Codes: F10.929 - Alcohol use, unspecified with intoxication, unspecified (2) Alcohol withdrawal seizure: Qualified Codes: F10.230 - Alcohol dependence with withdrawal, uncomplicated Hossein Rosenthal April 01, 2018 08:26 José Molina MD April 01, 2018 08:27
[2018-04-01] MEDS ORDERED: FOLIC ACID 1 MG TAB PO SCH (09:00)
[2018-04-01] MEDS ORDERED: DOCUSATE SODIUM 50 MG/SENNA 8.6 MG TAB PO SCH (09:00)
[2018-04-01] MEDS ORDERED: SODIUM CHLORIDE 0.9% FLUSH 10 ML FLUSH IV FLUSH SCH (09:00)
[2018-04-01] MEDS ORDERED: THIAMINE HCL 100 MG TAB PO SCH (09:00)
[2018-04-01] MEDS ORDERED: MULTIVITAMINS/MINERALS THERAPEUTIC TAB PO SCH (09:00)
[2018-04-01] MEDS ORDERED: NICOTINE 21 MG/24 HR PATCH T-DERMAL SCH (09:30)
[2018-04-01 11:12] VITALS: BP 138/78; PULSE 100; RESP 20; TEMP 98.6; O2SAT 98
[2018-04-01] MEDS ORDERED: CHLO5CAP4 PO (11:49)
--- NOTE | 2018-04-01 11:51 | HHI.DCPOC ---
Discharge Care Plan Diagnosis: (1) Seizure (2) Alcohol intoxication (3) Alcohol abuse Goals to Promote Your Health * To prevent worsening of your condition and complications * To maintain your health at the optimal level Directions to Meet Your Goals Take your medications as prescribed Follow your dietary instruction Follow activity as directed Keep your appointments as scheduled Take your immunizations and boosters as scheduled If your symptoms worsen call your PCP, if no PCP go to Urgent Care Center or Emergency Room Smoking is Dangerous to Your Health. Avoid second hand smoke Call the 24-hour hour crisis hotline for domestic abuse at Hossein Rosenthal April 01, 2018 11:51
--- NOTE | 2018-04-01 12:43 | EKG ---
Date Performed: 03/31/2018 Time Performed: 21:22:24 PTAGE: 27 years EKG: Sinus rhythm LEFT ATRIAL ENLARGEMENT BORDERLINE LEFT AXIS DEVIATION S1-S2-S3 PATTERN, CONSISTENT WITH PULMONARY D ISEASE, RVH, OR NORMAL VARIANT POSSIBLE RIGHT VENTRICULAR CONDUCTION DELAY POSSIBLE LEFT VENTRICULAR HYPERTROPHY ABNORMAL ECG Since PREVIOUS TRACING , no significant change noted PREVIOUS TRACIN03/04/2017 09.34 DOCTOR: Gabriel Guillen Interpretating Date/Time 04/01/2018 12:42:02
[2018-04-02] MEDS ORDERED: REMOVE OLD PATCH T-DERMAL SCH (09:00)
== END 2018-04-01 12:50 | disposition home or self-care (01) | DRG 897 ==
LOC: PHED 17:55 → PHEDA 21:03 → PH3A 23:33
PROVIDERS: ADMIT Hospitalist; ATTEND Hospitalist
DX: F10.230 Alcohol dependence with withdrawal, uncomplicated (principal); G40.89 Other seizures; I10 Essential (primary) hypertension; R40.2412 Glasgow coma scale score 13-15, at arrival to emergency department; F17.200 Nicotine dependence, unspecified, uncomplicated; F41.0 Panic disorder [episodic paroxysmal anxiety]; F41.9 Anxiety disorder, unspecified; Y90.8 Blood alcohol level of 240 mg/100 ml or more; Z88.2 Allergy status to sulfonamides
CPT/HCPCS: 80053; 80307; 81001; 83735; 85025; 93005; 96361; 96374; 96375; J2060; J3411; J7030

== ENCOUNTER 2018-05-18 19:17 | Inpatient (IN) ==
[2018-05-18] MEDS ORDERED: Sod Chloride 0.9% Inj 1,000 ML IV.SIG ONE (20:36)
[2018-05-18] MEDS ORDERED: Thiamine Inj 100 MG in Sodium Chlor 0.9% Inj 100 ML IV.SIG ONE (20:39)
--- NOTE | 2018-05-18 20:53 | ED ---
HPI General Chief Complaint: Alcohol Stated Complaint: Alcohol Withdraw Time Seen by Provider: 05/18/18 19:33 Source: patient Mode of arrival: ambulatory Limitations: no limitations History of Present Illness HPI narrative: 27-year-old male complaining of feeling shaky, headache, chest pain, abdominal pain, body ache. Patient has history of alcohol abuse and Roxicodone abuse. Last alcohol consumption was this morning. Last Roxicodone abuse was yesterday. Patient feeling shaky and impending withdrawal symptoms. Patient states that he has mild aching headache. Patient complained aching pain to the chest abdomen and extremity. Patient denies any nausea vomiting. Patient states that he has poor appetite for the past several days. Patient denies any fever chills. Patient denies any back pain. Related Data Home Medications Medication Instructions Recorded Confirmed No Known Home Medications 05/18/18 05/18/18 Allergies Allergy/AdvReac Type Severity Reaction Status Date / Time Sulfa (Sulfonamide Allergy Unknown TOLD Verified 05/18/18 19:58 Antibiotics) CHILD Review of Systems Except as stated in HPI: all other systems reviewed are negative [facility] Medical History Medical History History of alcohol dependence (Acute) History of narcotic use (Acute) Surgical history unknown (Acute) Social History Social History Substance History: Active Abuse Second Hand Smoke Exposure: Yes Smoking Status: Current every day smoker Tobacco Type: Cigarettes How Often Do You Have a Drink Containing Alcohol: 4 or more times a week Substance Abuse Detail Opiates: Route Used Substance Abuse: Inhalation Substance Frequency: ROXICODONE 30 MG NASALLY TID Reason for Use: Get High Immunization History Tetanus Immunization: <5 Years Hx Influenza Vaccine This Season: No Exam Narrative Exam Narrative: GENERAL: Well-nourished, well-developed patient. SKIN: Focused skin assessment warm/dry. HEAD: Normocephalic. EYES: No scleral icterus. No injection or drainage. NECK: Supple, trachea midline. No JVD or lymphadenopathy. CARDIOVASCULAR: Tachycardia rate and rhythm without murmurs, gallops, or rubs. RESPIRATORY: Breath sounds equal bilaterally. No accessory muscle use. GASTROINTESTINAL: Abdomen soft, non-tender, nondistended. MUSCULOSKELETAL: No cyanosis, or edema. BACK: Nontender without obvious deformity. No CVA tenderness. Neurologic exam: Patient is awake and alert oriented 3. Patient moves all extremity well. No obvious focal neurological deficit. Course Initial Documented Vital Signs Temperature 98.6 F 05/18/18 19:23 Pulse Rate 123 H 05/18/18 19:23 Blood Pressure 121/85 05/18/18 19:23 Pulse Oximetry 97 05/18/18 19:23 Last Documented Vital Signs Temperature 98.6 F 05/18/18 19:23 Pulse Rate 110 H 05/18/18 22:10 Respiratory Rate 18 05/18/18 22:10 Blood Pressure 126/84 05/18/18 22:10 Pulse Oximetry 98 05/18/18 21:36 Medical Decision Making MDM Narrative Medical decision making narrative: 27-year-old male with feeling shaky, body ache. Patient has history of alcohol abuse. Patient has history of Roxicodone abuse. Patient is tachycardic, tremulous. Patient is in withdrawal. Normal saline solution 1 L IV bolus. Thiamine 100 mg IV. Ativan 1 mg IV. Ativan will be repeated to control patient's symptoms. CIWA protocol started. Lab Data Lab results reviewed: Yes I reviewed the patient's lab results. Result diagrams: 05/18/18 20:50 05/18/18 20:50 Lab Results 05/18/18 05/18/18 05/18/18 Range/Units 20:50 20:50 20:50 CBC w Diff Auto diff final WBC 5.9 (4.0-11.0) th/mm3 RBC 4.97 (4.50-5.90) mil/mm3 Hgb 15.3 (13.0-17.0) gm/dL Hct 45.3 (39.0-51.0) % MCV 91.1 (80.0-100.0) fL MCH 30.9 (27.0-34.0) pg MCHC 33.9 (32.0-36.0) % RDW 13.4 (11.6-17.2) % Plt Count 212 (150-450) th/mm3 MPV 8.5 (7.0-11.0) fL Neut % (Auto) 64.4 (16.0-70.0) % Lymph % (Auto) 27.4 (9.0-44.0) % Hill % (Auto) 5.5 (0.0-8.0) % Eos % (Auto) 1.1 (0.0-4.0) % Baso % (Auto) 1.6 (0.0-2.0) % Neut # (Auto) 3.8 (1.8-7.7) th/mm3 Lymph # (Auto) 1.6 (1.0-4.8) th/mm3 Hill # (Auto) 0.3 (0.0-0.9) th/mm3 Eos # (Auto) 0.1 (0.0-0.4) th/mm3 Baso # (Auto) 0.1 (0.0-0.2) th/mm3 WBC Differential . Differential Comment . Sodium 145 (136-145) meq/L Potassium 3.5 (3.5-5.1) meq/L Chloride 111 H (98-107) meq/L Carbon Dioxide 23.1 (21.0-32.0) meq/L Anion Gap 11 (5-15) meq/L BUN 12 (7-18) mg/dL Creatinine 1.20 (0.60-1.30) mg/dL Estimated GFR 72 L (>89) mL/min Random Glucose 128 H (74-106) mg/dL Calcium 8.2 L (8.5-10.1) mg/dL Total Bilirubin 0.2 (0.2-1.0) mg/dL AST 19 (15-37) U/L ALT 21 (12-78) U/L Alkaline Phosphatase 74 (45-117) U/L Total Creatine Kinase 187 (39-308) U/L CK-MB (CK-2) 1.4 (0.5-3.6) ng/mL Total Protein 8.0 (6.4-8.2) g/dL Albumin 4.4 (3.4-5.0) g/dL Lipase 217 (73-393) U/L Urine Opiates Screen (Neg) Ur Barbiturates Screen (Neg) Ur Amphetamines Screen (Neg) U Benzodiazepines Scrn (Neg) Urine Cocaine Screen (Neg) U Cannabinoids Screen (Neg) Serum Alcohol (0-5) mg/dL 05/18/18 05/18/18 Range/Units 20:50 21:40 CBC w Diff WBC (4.0-11.0) th/mm3 RBC (4.50-5.90) mil/mm3 Hgb (13.0-17.0) gm/dL Hct (39.0-51.0) % MCV (80.0-100.0) fL MCH (27.0-34.0) pg MCHC (32.0-36.0) % RDW (11.6-17.2) % Plt Count (150-450) th/mm3 MPV (7.0-11.0) fL Neut % (Auto) (16.0-70.0) % Lymph % (Auto) (9.0-44.0) % Hill % (Auto) (0.0-8.0) % Eos % (Auto) (0.0-4.0) % Baso % (Auto) (0.0-2.0) % Neut # (Auto) (1.8-7.7) th/mm3 Lymph # (Auto) (1.0-4.8) th/mm3 Hill # (Auto) (0.0-0.9) th/mm3 Eos # (Auto) (0.0-0.4) th/mm3 Baso # (Auto) (0.0-0.2) th/mm3 WBC Differential Differential Comment Sodium (136-145) meq/L Potassium (3.5-5.1) meq/L Chloride (98-107) meq/L Carbon Dioxide (21.0-32.0) meq/L Anion Gap (5-15) meq/L BUN (7-18) mg/dL Creatinine (0.60-1.30) mg/dL Estimated GFR (>89) mL/min Random Glucose (74-106) mg/dL Calcium (8.5-10.1) mg/dL Total Bilirubin (0.2-1.0) mg/dL AST (15-37) U/L ALT (12-78) U/L Alkaline Phosphatase (45-117) U/L Total Creatine Kinase (39-308) U/L CK-MB (CK-2) (0.5-3.6) ng/mL Total Protein (6.4-8.2) g/dL Albumin (3.4-5.0) g/dL Lipase (73-393) U/L Urine Opiates Screen Neg (Neg) Ur Barbiturates Screen Neg (Neg) Ur Amphetamines Screen Neg (Neg) U Benzodiazepines Scrn Neg (Neg) Urine Cocaine Screen Neg (Neg) U Cannabinoids Screen Neg (Neg) Serum Alcohol 322 H (0-5) mg/dL Discharge Plan Discharge Disposition Patient Disposition: 30 Still Patient Discharge Details Diagnosis: Alcohol withdrawal syndrome, Opioid abuse Physicians Team ED Provider: Antolin Hdz ED Midlevel Provider: Carole Schmitz Primary Care Provider: Primary Care AnnaiGeorgia Rxs /Orders / Referrals /Forms Prescriptions: No Action No Known Home Medications RF: 0 Status ED Status: With Doctor
[2018-05-18 20:59] LABS: Baso # (Auto) 0.1 th/mm3 (0.0-0.2); Baso % (Auto) 1.6 % (0.0-2.0); Eos # (Auto) 0.1 th/mm3 (0.0-0.4); Eos % (Auto) 1.1 % (0.0-4.0); Hematocrit 45.3 % (39.0-51.0); Hemoglobin 15.3 gm/dL (13.0-17.0); Lymph # (Auto) 1.6 th/mm3 (1.0-4.8); Lymph % (Auto) 27.4 % (9.0-44.0); Mean Corpuscular HGB Conc 33.9 % (32.0-36.0); Mean Corpuscular Hemoglobin 30.9 pg (27.0-34.0); Mean Corpuscular Volume 91.1 fL (80.0-100.0); Mean Platelet Volume 8.5 fL (7.0-11.0); Mono # (Auto) 0.3 th/mm3 (0.0-0.9); Mono % (Auto) 5.5 % (0.0-8.0); Neut # (Auto) 3.8 th/mm3 (1.8-7.7); Neut % (Auto) 64.4 % (16.0-70.0); Platelet Count 212 th/mm3 (150-450); Red Blood Count 4.97 mil/mm3 (4.50-5.90); Red Cell Distribution Width 13.4 % (11.6-17.2); White Blood Count 5.9 th/mm3 (4.0-11.0)
[2018-05-18 21:21] LABS: Chloride 111 meq/L (98-107); Potassium 3.5 meq/L (3.5-5.1); Sodium 145 meq/L (136-145)
[2018-05-18 21:25] LABS: Albumin 4.4 g/dL (3.4-5.0); Anion Gap 11 meq/L (5-15); Blood Urea Nitrogen 12 mg/dL (7-18); Calcium 8.2 mg/dL (8.5-10.1); Carbon Dioxide 23.1 meq/L (21.0-32.0); Glucose,Random 128 mg/dL (74-106); Lipase 217 U/L (73-393)
[2018-05-18 21:28] LABS: Alanine Aminotransferase 21 U/L (12-78); Aspartate Aminotransferase 19 U/L (15-37); Glomerular Filtration Rate 72 mL/min (>89)
[2018-05-18 21:31] LABS: Alkaline Phosphatase 74 U/L (45-117)
[2018-05-18 21:33] LABS: Creatine Kinase 187 U/L (39-308)
[2018-05-18 21:49] LABS: Creatine Kinase MB 1.4 ng/mL (0.5-3.6)
[2018-05-18] MEDS ORDERED: Haloperidol Inj 5 MG/ML Ampul IV.PUSH PRN (21:52)
[2018-05-18 21:57] LABS: Amphetamine Screen,Urine Neg (Neg); Barbiturate Screen,Urine Neg (Neg); Cocaine Screen,Urine Neg (Neg)
[2018-05-18] MEDS ORDERED: Sod Chloride 0.9% Inj 1,000 ML IV.CONT SCH (22:00)
[2018-05-18 22:07] LABS: Cannabinoid Screen,Urine Neg (Neg)
[2018-05-18 22:11] LABS: Opiate Screen,Urine Neg (Neg)
[2018-05-18] MEDS ORDERED: Bisacodyl 10 MG Supp RECTAL PRN (22:31)
[2018-05-18] MEDS ORDERED: Temazepam 15 MG Capsule PO PRN (22:31)
[2018-05-19] MEDS: Sod Chloride 0.9% Inj 1,000 ML IV.CONT SCH ×2 (00:59→09:12)
[2018-05-19] MEDS: LORazepam 1 MG Tablet PO PRN ×2 (01:09→11:38)
[2018-05-19] MEDS ORDERED: Ibuprofen 400 MG Tablet PO ONE (01:40)
[2018-05-19 06:57] LABS: Baso # (Auto) 0.2 th/mm3 (0.0-0.2); Baso % (Auto) 3.7 % (0.0-2.0); Eos # (Auto) 0.2 th/mm3 (0.0-0.4); Eos % (Auto) 3.2 % (0.0-4.0); Hematocrit 41.8 % (39.0-51.0); Lymph # (Auto) 2.2 th/mm3 (1.0-4.8); Lymph % (Auto) 38.2 % (9.0-44.0); Mean Corpuscular HGB Conc 33.4 % (32.0-36.0); Mean Corpuscular Hemoglobin 30.6 pg (27.0-34.0); Mean Corpuscular Volume 91.5 fL (80.0-100.0); Mean Platelet Volume 8.8 fL (7.0-11.0); Mono # (Auto) 0.5 th/mm3 (0.0-0.9); Mono % (Auto) 8.9 % (0.0-8.0); Neut # (Auto) 2.5 th/mm3 (1.8-7.7); Platelet Count 188 th/mm3 (150-450); Red Blood Count 4.57 mil/mm3 (4.50-5.90); Red Cell Distribution Width 13.5 % (11.6-17.2); White Blood Count 5.7 th/mm3 (4.0-11.0)
[2018-05-19 07:05] LABS: Chloride 112 meq/L (98-107); Potassium 3.6 meq/L (3.5-5.1); Sodium 146 meq/L (136-145)
[2018-05-19 07:09] LABS: Calcium 7.6 mg/dL (8.5-10.1)
[2018-05-19 07:11] LABS: Albumin 3.8 g/dL (3.4-5.0); Anion Gap 10 meq/L (5-15); Blood Urea Nitrogen 13 mg/dL (7-18); Carbon Dioxide 24.2 meq/L (21.0-32.0); Glucose,Random 74 mg/dL (74-106)
[2018-05-19 07:18] LABS: Alanine Aminotransferase 17 U/L (12-78); Alkaline Phosphatase 62 U/L (45-117); Aspartate Aminotransferase 20 U/L (15-37); Glomerular Filtration Rate Greater Than 89 mL/min (>89); Total Protein 6.8 g/dL (6.4-8.2)
[2018-05-19] MEDS ORDERED: Ibuprofen 600 MG Tablet PO PRN (08:06)
--- NOTE | 2018-05-19 08:11 | P.HPIM ---
History of Present Illness Primary Care Physician: No Primary Care Physician Chief Complaint: Headache and shakiness History of Present Illness: This patient is a 27-year-old gentleman who relates a 10 year history of alcohol and substance dependency. Currently he was in a sober house but left the house and went on a binge of alcohol. He drinks a liter of vodka a day. He had been in and out of the sober house residential he and in between that time and been living with his mother. Patient reports shakiness and a headache. He is tachycardic. His alcohol level on arrival was 322. Patient has been monitored overnight with a C1 protocol. CIWA scale score was 8. His headache is relieved with ibuprofen is resolved. This time patient is mildly tachycardic. He is alert and oriented. He would like to go home. - Diagnosis (1) Alcohol withdrawal syndrome (2) Opioid abuse Inpatient Certification: I certify that the inpatient services were ordered in accordance with Medicare regulations governing the order. This includes certification that hospital inpatient services are reasonable and necessary and in the case of services not specified as inpatient-only under 42 CFR 419.22(n), that they are appropriately provided as inpatient services in accordance to with the 2-midnight benchmark under 43 CFR 412.3(e) Estimated Total Length of Stay (Days): 2 Plans for Post Hospital Care: Not yet determined Review of Systems All other systems reviewed negative except as stated in HPI [facility] - History History Provided By: Patient - Medical History Medical History: Medical History (Last Reviewed 05/19/18 @ 08:07 by Holli Cotter MD) History of alcohol dependence History of narcotic use Surgical history unknown - Surgical History Surgical History: Surgical History (Last Updated 05/19/18 @ 08:08 by Holli Cotter MD) No history of previous surgery - Family History Family History: Family History (Last Updated 05/19/18 @ 08:08 by Holli Cotter MD) Other CAD (coronary artery disease) Substance abuse - Tobacco History Second Hand Smoke Exposure: Yes Tobacco Use In Past 30 Days: Yes Smoking Status: Current every day smoker Tobacco Type: E-Cigarettes - Alcohol History How Often Do You Have a Drink Containing Alcohol: 4 or more times a week (At least a liter of vodka daily) - Substance Use History Substance History: Active Abuse - Substance Use Type Opiates Route Used: Inhalation Frequency: ROXICODONE 30 MG NASALLY TID Reason for Use: Get High - Immunization History Tetanus Immunization: >5 Years Hx Influenza Vaccine This Season: No Medications and Allergies Active Medications: Active Medications Al Hydroxide/Mg Hydroxide (Milk Of Magnesia Liq) 30 ml PO Q12H PRN PRN Reason: Mild Constipation Bisacodyl (Dulcolax Supp) 10 mg RECTAL DAILY PRN PRN Reason: SEVERE CONSITIPATION Chlorhexidine Gluconate (Chlorhexidine 2% Cloth) 3 pack TOPICAL DAILY@0400 MATTY Stop: 05/25/18 03:59 Chlorhexidine Gluconate (Chlorhexidine 2% Cloth) 3 pack TOPICAL DAILY@0400 PRN PRN Reason: Extra cloth needed Stop: 05/25/18 03:59 Clonidine HCl (Catapres) 0.1 mg PO Q8HR [facility] Last Admin: 05/19/18 06:10 Dose: 0.1 mg Flumazenil (Romazecon Inj) 0.2 mg IV.PUSH Q1M PRN PRN Reason: OVERSEDATION Haloperidol Lactate (Haldol Inj) 1 mg IV.PUSH Q15M PRN PRN Reason: for severe agitation Sodium Chloride (Ns Inj) 1,000 mls @ 100 mls/hr IV.CONT .Q10H [facility] Last Admin: 05/19/18 00:59 Dose: 100 mls/hr Lactulose (Lactulose Liq) 30 ml PO DAILY PRN PRN Reason: SEVERE CONSITIPATION Lorazepam (Ativan Inj) 1 mg IV.PUSH Q4H PRN PRN Reason: for CIWA 8-10 Lorazepam (Ativan Inj) 2 mg IV.PUSH Q15M PRN PRN Reason: for CIWA > 20 Lorazepam (Ativan Inj) 2 mg IV.PUSH Q1H PRN PRN Reason: for CIWA 15-20 Lorazepam (Ativan Inj) 2 mg IV.PUSH Q2H PRN PRN Reason: for CIWA 11-14 Lorazepam (Ativan) 1 mg PO Q4H PRN PRN Reason: for CIWA 8-10 Last Admin: 05/19/18 01:09 Dose: 1 mg Lorazepam (Ativan) 2 mg PO Q2H PRN PRN Reason: for CIWA 11-14 Nicotine (Habitrol 21 Mg Patch.24 Hr) 1 patch T-DERMAL DAILY [facility] Last Admin: 05/19/18 02:44 Dose: 1 patch Pantoprazole Sodium (Protonix) 40 mg PO DAILY [facility] Last Admin: 05/19/18 02:28 Dose: 40 mg Patch Removal (Remove Old Patch) 1 each T-DERMAL DAILY [facility] Senna/Docusate Sodium (Chhaya-Colace) 1 tab PO BID [facility] Sennosides (Senokot) 17.2 mg PO Q12H PRN PRN Reason: Moderate Constipation Temazepam (Restoril) 15 mg PO HS PRN PRN Reason: INSOMNIA Allergies Allergy/AdvReac Type Severity Reaction Status Date / Time Sulfa (Sulfonamide Allergy Unknown TOLD Verified 05/18/18 19:58 Antibiotics) CHILD Home Medications Medication Instructions Recorded Confirmed Type No Known Home Medications 05/18/18 05/18/18 History Exam Vital signs: Vital Signs 05/18/18 19:23 05/18/18 20:50 05/18/18 21:36 Temperature 98.6 F Pulse Rate 123 H 120 H 114 H Respiratory Rate 20 Blood Pressure 121/85 116/70 Pulse Oximetry 97 97 98 05/18/18 22:10 05/18/18 23:23 05/19/18 00:17 Temperature 98 F Pulse Rate 110 H 98 H 106 H Respiratory Rate 18 18 Blood Pressure 126/84 94/56 L 138/83 Pulse Oximetry 97 05/19/18 01:00 05/19/18 02:00 05/19/18 03:00 Temperature Pulse Rate 100 H 94 H 92 H Respiratory Rate 27 H 21 21 Blood Pressure 109/78 111/70 103/65 Pulse Oximetry 96 05/19/18 04:00 05/19/18 05:00 05/19/18 06:00 Temperature 98.6 F 97.5 F L Pulse Rate 94 H 92 H 102 H Respiratory Rate 18 20 18 Blood Pressure 106/62 110/58 L 119/81 Pulse Oximetry Intake & Output 05/18/18 05/19/18 05/19/18 18:59 06:59 18:59 Intake Total 1790 / 1790 Output Total 300 / 300 Balance 1490 / 1490 Weight 65.3 kg Intake: IV 1150 / 1150 NS Inj 1,000 ML @ 125 mls/hr IV 150 / 150 .CONT .Q8H [facility] Rx#:[id number] NS Inj 1,000 ML @ Wide Open IV. 1000 / 1000 SIG BOLUS ONE Rx#:[id number] Oral 640 / 640 Output: Urine 300 / 300 Other: Weight On Admission 65.4 kg Narrative: GENERAL: Patient calm resting and without complaints SKIN: Warm and dry. No rashes or ecchymotic injuries EYES: Pupils equal and round. No scleral icterus. No injection or drainage. ENT: External ear exam normal. No acute nasal bleeding or discharge. Mucous membranes pink and moist. CARDIOVASCULAR: Sinus tachycardia. No murmurs gallops or rubs appreciated RESPIRATORY: Good air flow and effort without accessory muscle use. Clear to auscultation. Breath sounds equal bilaterally. GASTROINTESTINAL: Abdomen soft, non-tender, nondistended. Hepatic and splenic margins not palpable. MUSCULOSKELETAL: Extremities without clubbing, cyanosis, or edema. No obvious deformities. NEUROLOGICAL: Awake and alert. No obvious cranial nerve deficits. Motor grossly within normal limits. Five out of 5 muscle strength in the arms and legs. Normal speech. Results - Labs CBC & Chem 7: 05/19/18 05:40 05/19/18 05:40 Labs: Short CBC 05/18/18 05/19/18 Range/Units 20:50 05:40 WBC 5.9 5.7 (4.0-11.0) th/mm3 Hgb 15.3 14.0 (13.0-17.0) gm/dL Hct 45.3 41.8 (39.0-51.0) % Plt Count 212 188 (150-450) th/mm3 BMP 05/18/18 05/19/18 20:50 05:40 Sodium 145 146 H Potassium 3.5 3.6 Chloride 111 H 112 H Carbon Dioxide 23.1 24.2 BUN 12 13 Creatinine 1.20 0.95 Calcium 8.2 L 7.6 L Cardiac Enzymes 05/18/18 Range/Units 20:50 Total Creatine Kinase 187 (39-308) U/L CK-MB (CK-2) 1.4 (0.5-3.6) ng/mL Liver Function 05/18/18 05/19/18 Range/Units 20:50 05:40 Total Bilirubin 0.2 0.3 (0.2-1.0) mg/dL AST 19 20 (15-37) U/L ALT 21 17 (12-78) U/L Alkaline Phosphatase 74 62 (45-117) U/L Albumin 4.4 3.8 D (3.4-5.0) g/dL Caprini VTE Risk Assessment Caprini VTE Risk Assessment: No/Low Risk (score <= 1) Caprini Risk Assessment Model: Point Value = 1 Point Value = 2 Point Value = 3 Point Value = 5 Age 41-60 Minor surgery BMI > 25 kg/m2 Swollen legs Varicose veins or History of unexplained or recurrent spontaneous Oral contraceptives or hormone replacement Sepsis (< 1 month) Serious lung disease, including pneumonia (< 1 month) Abnormal pulmonary function Acute myocardial infarction Congestive heart failure (< 1 month) History of inflammatory bowel disease Medical patient at bed rest Age 61-74 Arthroscopic surgery Major open surgery (> 45 min) Laparoscopic surgery (> 45 min) Malignancy Confined to bed (> 72 hours) Immobilizing plaster cast Central venous access Age >= 75 History of VTE Family history of VTE Factor V Leiden Prothrombin [id number] Lupus anticoagulant Anticardiolipin antibodies Elevated serum homocysteine Heparin-induced thrombocytopenia Other congenital or acquired thrombophilia Stroke (< 1 month) Elective arthroplasty Hip, pelvis, or leg fracture Acute spinal cord injury (< 1 month) Prophylaxis Regimen: Total Risk Factor Score Risk Level Prophylaxis Regimen 0-1 Low Early ambulation 2 Moderate Order ONE of the following: *Sequential Compression Device (SCD) *Heparin 5000 units SQ BID 3-4 Higher Order ONE of the following medications: *Heparin 5000 units SQ TID *Enoxaparin/Lovenox 40 mg SQ daily (WT < 150 kg, CrCl > 30 mL/min) *Enoxaparin/Lovenox 30 mg SQ daily (WT < 150 kg, CrCl > 10-29 mL/min) *Enoxaparin/Lovenox 30 mg SQ BID (WT < 150 kg, CrCl > 30 mL/min) AND/OR *Sequential Compression Device (SCD) 5 or more Highest Order ONE of the following medications: *Heparin 5000 units SQ TID (Preferred with Epidurals) *Enoxaparin/Lovenox 40 mg SQ daily (WT < 150 kg, CrCl > 30 mL/min) *Enoxaparin/Lovenox 30 mg SQ daily (WT < 150 kg, CrCl > 10-29 mL/min) *Enoxaparin/Lovenox 30 mg SQ BID (WT < 150 kg, CrCl > 30 mL/min) AND *Sequential Compression Device (SCD) Assessment and Plan - Assessment (1) Alcohol withdrawal syndrome Code(s): F10.239 - Alcohol dependence with withdrawal, unspecified Status: Acute Plan: Continue with Ativan, scheduled Librium. Follow-up electrolytes. Likely discharge home withdrawal symptoms stabilize (2) Opioid abuse Code(s): F11.10 - Opioid abuse, uncomplicated Status: Acute H&P: Quality - VTE Deep Vein Thrombosis/Pulmonary Embolism Present on Admission: No (1) Alcohol withdrawal syndrome Qualifiers: Complication of substance-induced condition: uncomplicated Qualified Code(s) : F10.230 - Alcohol dependence with withdrawal, uncomplicated
--- NOTE | 2018-05-19 08:20 | ECG ---
Date Performed: 05/18/2018 Time Performed: 21:04:34 PTAGE: 27 years EKG: SINUS TACHYCARDIA POSSIBLE LEFT ATRIAL ENLARGEMENT BORDERLINE RIGHT AXIS DEVIATION ABNORMAL RHYTHM ECG PREVIOUS TRACING : 05/04/2018 16.17 DOCTOR: Bee Radford Interpretating Date/Time 05/19/2018 08:17:39
[2018-05-19] MEDS ORDERED: Senna/Docusate Sodium 8.6/50 MG Tablet PO SCH (09:00)
[2018-05-20] MEDS ORDERED: Chlorhexidine Gluconate 2% 1 Pack (2 Cloths) TOPICAL SCH (04:00)
[2018-05-20] MEDS ORDERED: Chlorhexidine Gluconate 2% 1 Pack (2 Cloths) TOPICAL PRN (04:00)
== END 2018-05-19 14:10 | disposition home or self-care (01) ==
LOC: PHEDA 19:17 → PHED 19:17 → OBSVTOIN 22:34 → PHICU 05-19 00:10
PROVIDERS: ADMIT Hospitalist; ATTEND Hospitalist